=== PATIENT | female | born 2000 | race Caucasian/White ===

== ENCOUNTER 2019-09-10 05:23 | Inpatient (IN) | payer BC, MEDICAID ==
[2019-09-10] MEDS ORDERED: Misoprostol 200 MCG Tab PO PRN (06:00)
[2019-09-10] MEDS ORDERED: Water For Irrigation,Sterile 1,000 ML Container IRR PRN (06:00)
[2019-09-10] MEDS ORDERED: Sodium Chloride 0.9% 10 ML Syringe FLUSH PRN (06:00)
[2019-09-10] MEDS ORDERED: Ondansetron 4 MG/2 ML SDV IVPUSH PRN ×3 (06:00→23:00)
[2019-09-10] MEDS ORDERED: Terbutaline 1 MG/ML SDV SUBCUT PRN (06:00)
[2019-09-10] MEDS ORDERED: Butorphanol 1 MG/ML SDV IVPUSH PRN (06:00)
[2019-09-10] MEDS ORDERED: Methylergonovine 0.2 MG/1 ML Amp IM PRN ×2 (06:00→23:00)
[2019-09-10] MEDS ORDERED: Sodium Chloride 0.9% 2.5 ML Syringe FLUSH PRN (06:00)
[2019-09-10] MEDS ORDERED: Misoprostol 25 MCG (1/4 of 100 MCG) Tab VAG PRN ×2 (06:00)
[2019-09-10] MEDS ORDERED: Sodium Chloride 0.9% 10 ML SDV IV PRN (06:00)
[2019-09-10] MEDS ORDERED: Lidocaine 1% 50 ML MDV INJECT PRN (06:00)
[2019-09-10] MEDS ORDERED: Tranexamic Acid 1,000 MG in Sodium Chloride 0.9% 100 ML IV PRN ×2 (06:00→23:00)
[2019-09-10] MEDS ORDERED: Carboprost Tromethamine 250 MCG/1 ML Amp IM PRN (06:00)
[2019-09-10] MEDS ORDERED: Oxytocin/0.9 % Sodium Chloride 30 UNIT/500 ML BAG IV SCH ×2 (06:00)
[2019-09-10] MEDS ORDERED: Misoprostol 25 MCG (1/4 of 100 MCG) Tab PO ONE (06:25)
[2019-09-10] MEDS ORDERED: Misoprostol 25 MCG (1/4 of 100 MCG) Tab PO SCH (12:00)
[2019-09-10] MEDS: Nalbuphine 10 MG/1 ML Vial IVPUSH PRN ×2 (12:05→14:18)
[2019-09-10] MEDS: Lactated Ringers 1,000 ML IV SCH ×3 (12:10→20:04)
[2019-09-10] MEDS ORDERED: Bupivicaine/fentaNYL/NS 250 ML ONE (16:00)
--- NOTE | 2019-09-10 17:00 | PCM.PREANE ---
Preanesthetic Assessment - Procedure Proposed Procedure: Labor epidural - Anesthesia/Transfusion/Family Hx Anesthesia History: Prior Anesthesia Without Reaction Family History of Anesthesia Reaction: No - Review of Systems General: No Symptoms Pulmonary: No Symptoms Cardiovascular: No Symptoms Gastrointestinal: No Symptoms Neurological: No Symptoms Other: Reports: None - Physical Assessment Vital Signs: reviewed see trace master Height: 5 ft 8 in Weight: 86.636 kg ASA Class: 2 Mental Status: Alert & Oriented x3 Airway Class: Mallampati = 1 Dentition: Reports: Normal Dentition ROM/Head Extension: Full Lungs: Clear to Auscultation, Normal Respiratory Effort Cardiovascular: Regular Rate, Regular Rhythm - Lab Values: Laboratory Last Values WBC 8.87 K/uL (4.0-11.0) 09/10/19 07:10 RBC 3.83 M/uL (4.30-5.90) L 09/10/19 07:10 Hgb 10.0 g/dL (12.0-16.0) L 09/10/19 07:10 Hct 31.8 % (36.0-46.0) L 09/10/19 07:10 MCV 83.0 fL (80.0-98.0) 09/10/19 07:10 MCH 26.1 pg (27.0-32.0) L 09/10/19 07:10 MCHC 31.4 g/dL (31.0-37.0) 09/10/19 07:10 RDW Std Deviation 42.5 fl (28.0-62.0) 09/10/19 07:10 RDW Coeff of Ariadna 14 % (11.0-15.0) 09/10/19 07:10 Plt Count 218 K/uL (150-400) 09/10/19 07:10 MPV 10.10 fL (7.40-12.00) 09/10/19 07:10 Nucleated RBC % 0.0 /100WBC 09/10/19 07:10 Nucleated RBCs # 0 K/uL 09/10/19 07:10 Blood Type O POSITIVE 09/10/19 07:10 Antibody Screen NEGATIVE 09/10/19 07:10 - Allergies Allergies/Adverse Reactions: Allergies Allergy/AdvReac Type Severity Reaction Status Date / Time Penicillins Allergy Hives Verified 07/11/19 19:46 - Acknowledgements Anesthesia Type Planned: Epidural Pt an Appropriate Candidate for the Planned Anesthesia: Yes Alternatives and Risks of Anesthesia Discussed w Pt/Guardian: Yes Pt/Guardian Understands and Agrees with Anesthesia Plan: Yes PreAnesthesia Questionnaire - Past Health History Medical/Surgical History: Denies Medical/Surgical History HEENT History: Reports: None Cardiovascular History: Reports: None Respiratory History: Reports: Asthma Other Respiratory History: Exercise induced asthma Gastrointestinal History: Reports: None [employer] History: Reports: Musculoskeletal History: Reports: None Neurological History: Reports: None Psychiatric History: Reports: None Endocrine/Metabolic History: Reports: None Hematologic History: Reports: None - SUBSTANCE USE Smoking Status *Q: Current Every Day Smoker Second Hand Smoke Exposure: No Recreational Drug Use History: No - CURRENT (IN HOUSE) MEDS Current Meds: Current Medications Butorphanol Tartrate (Stadol) 1 mg IVPUSH Q1H PRN PRN Reason: Pain Carboprost Tromethamine (Hemabate Ds) 250 mcg IM ASDIRECTED PRN PRN Reason: Post Hemorrhage Lactated Ringer's (Ringers, Lactated) 1,000 mls @ 150 mls/hr IV ASDIRECTED [place] Last Admin: 09/10/19 12:10 Dose: 150 mls/hr Oxytocin/Sodium Chloride (Oxytocin 30 Unit/500 Ml-Ns) 30 unit in 500 mls @ 999 mls/hr IV TITRATE [facility] Oxytocin/Sodium Chloride (Oxytocin 30 Unit/500 Ml-Ns) 30 unit in 500 mls @ 2 mls/hr IV TITRATE [facility]; Protocol Last Admin: 09/10/19 16:23 Dose: 2 munits/min, 2 mls/hr Tranexamic Acid 1,000 mg/ (Sodium Chloride) 110 mls @ 660 mls/hr IV ONETIME PRN PRN Reason: Bleeding Lidocaine HCl (Xylocaine 1%) 50 ml INJECT ONETIME PRN PRN Reason: Laceration repair Methylergonovine Maleate (Methergine) 0.2 mg IM ASDIRECTED PRN PRN Reason: Post Hemorrhage Misoprostol (Cytotec) 200 mcg PO ONETIME PRN PRN Reason: Post Hemorrhage Misoprostol (Cytotec) 25 mcg VAG ONETIME PRN PRN Reason: Cervical Ripening Last Admin: 09/10/19 06:30 Dose: 25 mcg Misoprostol (Cytotec) 25 mcg VAG Q4H PRN PRN Reason: Cervical Ripening Last Admin: 09/10/19 11:45 Dose: 25 mcg Misoprostol (Cytotec) 25 mcg PO Q4H [place] Last Admin: 09/10/19 11:45 Dose: 25 mcg Nalbuphine HCl (Nubain) 10 mg IVPUSH Q1H PRN PRN Reason: Pain (severe 7-10) Last Admin: 09/10/19 14:18 Dose: 10 mg Ondansetron HCl (Zofran) 4 mg IVPUSH Q4H PRN PRN Reason: Nausea/Vomiting Sodium Chloride (Saline Flush) 10 ml FLUSH ASDIRECTED PRN PRN Reason: Keep Vein Open Sodium Chloride (Saline Flush) 2.5 ml FLUSH ASDIRECTED PRN PRN Reason: Keep Vein Open Sodium Chloride (Normal Saline) 10 ml IV ASDIRECTED PRN PRN Reason: IV Use Sterile Water (Sterile Water For Irrigation) 1,000 ml IRR ASDIRECTED PRN PRN Reason: delivery Terbutaline Sulfate (Brethine) 0.25 mg SUBCUT ASDIRECTED PRN PRN Reason: Tacysystole Discontinued Medications Fentanyl/Bupivacaine HCl (Fentanyl/Bupivacaine/Ns 2 Mcg-0.125% 250 Ml) Confirm Administered Dose 250 mls @ as directed .ROUTE .STK-MED ONE Stop: 09/10/19 16:01 Misoprostol (Cytotec) 25 mcg PO ONETIME ONE Stop: 09/10/19 06:26 Last Admin: 09/10/19 06:30 Dose: 25 mcg
[2019-09-10] MEDS ORDERED: Bupivacaine 0.5% 30 ML SDV ONE (21:58)
[2019-09-10] MEDS ORDERED: ceFAZolin 1 GM Vial ONE (22:09)
[2019-09-10] MEDS ORDERED: Sodium Chloride 0.9% 20 ML ONE (22:09)
[2019-09-10] MEDS ORDERED: Oxytocin 10 Units/1 ML SDV ONE ×2 (22:17→23:15)
[2019-09-10] MEDS ORDERED: Propofol 200 MG/20 ML SDV ONE (22:17)
[2019-09-10] MEDS ORDERED: Morphine PF 10 MG/10 ML SDV ONE (22:24)
[2019-09-10] MEDS ORDERED: fentaNYL 250 MCG/5 ML SDV ONE (22:24)
[2019-09-10] MEDS ORDERED: Phenylephrine/Normal Saline 100 MCG/ML 10 ML Syringe ONE (22:29)
[2019-09-10] MEDS ORDERED: Nalbuphine 10 MG/1 ML Vial IVPUSH PRN (22:39)
[2019-09-10] MEDS ORDERED: fentaNYL 100 MCG/2 ML SDV IVPUSH PRN (22:39)
[2019-09-10] MEDS ORDERED: Naloxone 0.4 MG/ML Syringe IVPUSH PRN (22:39)
[2019-09-10] MEDS ORDERED: diphenhydrAMINE 50 MG/ML SDV IVPUSH PRN ×2 (22:39→23:00)
[2019-09-10] MEDS ORDERED: Acetaminophen/oxyCODONE 325-5 MG Tab PO PRN ×2 (22:39→23:00)
[2019-09-10] MEDS ORDERED: Lidocaine 2% 5 ML SDV ONE (22:47)
[2019-09-10] MEDS ORDERED: Rocuronium 100 MG/10 ML Syringe ONE (22:48)
[2019-09-10] MEDS ORDERED: Octyl 2-Cyanoacrylate 1 Tube ONE (22:49)
[2019-09-10] MEDS ORDERED: Misoprostol 200 MCG Tab RECTAL PRN (23:00)
[2019-09-10] MEDS ORDERED: Lanolin 100% Cream 7 GM Tube TOP PRN (23:00)
[2019-09-10] MEDS ORDERED: Lactated Ringers 1,000 ML IV SCH (23:00)
[2019-09-10] MEDS ORDERED: Bisacodyl 10 MG Supp RECTAL PRN (23:00)
[2019-09-10] MEDS ORDERED: Oxytocin 10 Units/1 ML SDV IM PRN (23:00)
--- NOTE | 2019-09-10 23:12 | PCM.OPNOTE ---
- General Post-Op/Procedure Note Date of Surgery/Procedure: 09/10/19 Operative Procedure(s): Primary LTCS Findings: Viable male APGARs 9, 9 weight 4410 gm. Intact placenta with 3 V cord, normal appearing pelvis Pre Op Diagnosis: 40/1 week IUP. intolerance to labor Post-Op Diagnosis: Same Anesthesia Technique: Epidural, General ET Tube Primary Surgeon: Whitney Landis Fluid Replacement, Intraop: 1,000 (in OR) EBL in mLs: 600 Complications: none known Condition: Stable Free Text/Narrative:: Dictation [id number]
[2019-09-10] MEDS: Ketorolac 30 MG/ML SDV IVPUSH SCH (23:45)
--- NOTE | 2019-09-11 00:04 | PCM.POSTAN ---
POST ANESTHESIA ASSESSMENT - MENTAL STATUS Mental Status: Alert, Oriented - VITAL SIGNS Vital Signs: Last Vital Signs Temp 98.1 F 09/10/19 23:06 Pulse 125 H 09/10/19 23:51 Resp 15 09/10/19 23:51 BP 129/72 09/10/19 23:51 Pulse Ox 97 09/10/19 23:51 - RESPIRATORY Respiratory Status: Respiratory Rate WNL, Airway Patent, O2 Saturation Stable - CARDIOVASCULAR CV Status: Pulse Rate WNL, Blood Pressure Stable Free Text/Narrative:: tachy 100s to 120s, baseline in the 90's with epidural placement earlier in the evening - GASTROINTESTINAL GI Status: No Symptoms - PAIN Pain Score: 4 - POST OP HYDRATION Hydration Status: Adequate & Stable - OBSERVATIONS Free Text/Narrative:: Pt. sitting up and trying to nurse baby
--- NOTE | 2019-09-11 04:50 | OR ---
SURGEON: Whitney Landis M.D. DATE OF PROCEDURE: 09/10/2019 PREOPERATIVE DIAGNOSES: 1. Forty and one-week intrauterine . 2. intolerance to labor. POSTOPERATIVE DIAGNOSES: 1. Forty and one-week intrauterine . 2. intolerance to labor. PROCEDURE: Primary low-transverse section. PRIMARY SURGEON: Whitney Landis M.D. ANESTHESIA: Epidural converted to general endotracheal anesthesia. FLUIDS: 1000 mL of crystalloid in the OR. ESTIMATED BLOOD LOSS: 600 mL. COMPLICATIONS: None. FINDINGS: Viable male, score 9 at 1 minute, 9 at 5 minutes. Weight of 4410 g. Intact placenta, 3-vessel cord. Normal-appearing pelvis. DISPOSITION: Infant to nursery, mom in PACU, stable. PROCEDURE DETAIL: Yola is a 19-year-old G1, P0, at 40 and 1 weeks' gestational age, who usually follows with [facility], who is scheduled for an elective induction this morning. She presented and cervix was initially unfavorable, 2 cm, 50% effaced, -3 station, therefore was initiated with Cytotec ripening. heart tones were category 1. The patient responded nicely to the Cytotec and once on 2nd dosing was able to proceed with Pitocin and she had progressed to approximately 4 cm dilatation. The patient continued to progress throughout the afternoon hours, became increasingly uncomfortable, underwent regional anesthesia in the form of epidural. Became more comfortable and shortly after 6 p.m. was found to be approximately 5 cm dilated, 80% effaced, -3 station, underwent amniotomy, clear fluid was returned. Continued to progress over the next few hours to approximately 8 to 9 cm. However, during this time interval she began having variable deceleration to the 70s despite efforts at repositioning, oxygen, was given IV fluid bolus, and ultimately stopping the Pitocin. She was still ashleigh every 2 minutes and continued to have rather deep variable decelerations. She also at this juncture was making minimal change in her cervix. We monitored this category 2 tracing for approximately 2 hours. I tried various positions without continued progression. At this time interval, have discussed with the patient that it would be best to proceed with delivery as the category 2 heart tones are persisting and we are still remote from delivery. Risks of procedure were discussed with her including infection; bleeding; possible trauma to the surrounding bowel, bladder, ureters; in case of excessive blood loss, need for blood product transfusion; in rare lifesaving circumstances need for hysterectomy; risk of anesthesia, risk for thromboembolic event. She voiced understanding and agrees to proceed. The patient was taken to the operating room after her epidural had been rebolused by Anesthesia. She was placed in the dorsal supine position with leftward tilt. SCDs to lower extremities. Rangel to gravity. She was prepped and draped in usual sterile fashion. A time-out was performed. She did receive Ancef prophylactically. After being prepped and draped in usual sterile fashion, anesthesia was tested and patient was still having some discomfort. The heart tones had recovered to the 140s to 150s, so I did dose the patient with 2.25 mg of terbutaline. Once the contractions subsided, the heart tones remained stable. Therefore, we allowed another 5 minutes of time for anesthesia to set up. At this time the patient did pass the initial examination to assess for adequate analgesia. However, once the Pfannenstiel skin incision was created, shortly thereafter patient began having quite a lot of discomfort. Therefore, we opted to proceed with general anesthesia. The patient underwent general endotracheal anesthesia and continued with the delivery. The subcutaneous tissue was incised down to the level of the fascia, which was incised in the midline, lateralized to either side sharply. The superior aspect of the fascia was tented upward, dissected sharply and bluntly from underlying muscle. Similar aspect was performed with the inferior aspect of fascia. Rectus muscle and peritoneum were entered. Rectus muscles and peritoneum were now lateralized bluntly. Uterine position and position palpated. Self- retaining retractor was gently placed. Bladder flap was created sharply and bluntly. Bladder was bluntly mobilized away from the lower uterine segment. Low-transverse hysterotomy was now performed. Uterine cavity was entered bluntly. Hysterotomy was lateralized bluntly. The 's head was flexed and delivered from the pelvis. Fundal pressure was applied. The infant's head was delivered followed by anterior shoulder, posterior shoulder, and remaining body delivered. Nuchal cord x2 noted. The infant's oropharynx and nares bulb suctioned. The cord was clamped x2 and cut. was handed off to attending nursery staff and tar roofer. Cord arterial, cord venous, cord blood samples obtained. The placenta was now delivered. Uterine cavity was cleared of all clot and debris. Hysterotomy was repaired using 0 Vicryl in continuous running locked fashion, followed by re- imbricating layer. The posterior aspect of the uterus inspected. No defects or hematomas found be forming. Region was well irrigated, suction dried. Tubes and ovaries appeared normal. The uterus was returned to abdominal cavity. Colonic gutters were cleared of all clots and debris, well irrigated, and suction dried. Uterus still remained somewhat boggy at this juncture, therefore dosed patient with Hemabate. Uterus became more firm thereafter. Hemostasis was evident along the incision. Self-retaining retractor now gently removed. Bladder blade was placed. Incision was again inspected and found to be hemostatic. Any areas of serosal oozing were now cauterized. Bladder blade was now removed. The rectus muscle and peritoneum were now reapproximated using 0 Vicryl in inverted mattress suture technique. Anterior aspect of the muscle, posterior aspect of the fascia closely inspected. Any areas of oozing were cauterized. The rectus fascia was reapproximated using 0 Vicryl in continuous running fashion beginning laterally on each side and meeting in the midline. Subcutaneous tissue was well irrigated and suction dried. Any areas of oozing were cauterized. The skin edges were reapproximated using 3-0 Vicryl on a Esteban needle in subcuticular fashion, followed by Dermabond. Uterus was more firm at this juncture. Sponge, instrument, and needle count was correct x2. The patient tolerated the procedure well overall. She will go to PACU in stable condition. HETAL / SHARYN /[id number]
[2019-09-11] MEDS: Ketorolac 30 MG/ML SDV IVPUSH SCH ×3 (05:46→18:01)
--- NOTE | 2019-09-11 08:26 | PCM48HPAN ---
Post Anesthesia Note - EVALUATION WITHIN 48HRS OF ANESTHETIC Vital Signs in Normal Range: Yes Patient Participated in Evaluation: Yes Respiratory Function Stable: Yes Airway Patent: Yes Cardiovascular Function Stable: Yes Hydration Status Stable: Yes Pain Control Satisfactory: Yes Nausea and Vomiting Control Satisfactory: Yes Mental Status Recovered: Yes Vital Signs: Last Vital Signs Temp 37.0 C 09/11/19 08:06 Pulse 108 H 09/11/19 08:06 Resp 18 09/11/19 08:06 BP 131/72 09/11/19 08:06 Pulse Ox 95 09/11/19 08:06
[2019-09-11] MEDS: Docusate Sodium 100 MG Cap PO SCH ×2 (09:24→23:38)
--- NOTE | 2019-09-11 11:09 | PCM.PNPP ---
- General Info Date of Service: 09/11/19 Functional Status: Reports: Pain Controlled, Tolerating Diet - Review of Systems General: Reports: Fatigue. Denies: Fever, Weakness Pulmonary: Denies: Shortness of Breath Cardiovascular: Denies: Chest Pain, Palpitations, Lightheadedness Gastrointestinal: Denies: Abdominal Pain, Nausea, Vomiting Musculoskeletal: Reports: No Symptoms Skin: Reports: No Symptoms Neurological: Reports: No Symptoms Psychiatric: Reports: No Symptoms - General Info Date of Service: 09/11/19 - Patient Data Vital Signs - Most Recent: Last Vital Signs Temp 37.0 C 09/11/19 08:06 Pulse 82 09/11/19 08:45 Resp 18 09/11/19 08:06 BP 131/72 09/11/19 08:06 Pulse Ox 97 09/11/19 08:45 Weight - Most Recent: 86.636 kg I&O - Last 24 Hours: Intake & Output 09/10/19 09/11/19 09/11/19 22:59 06:59 14:59 Intake Total 2550 Output Total 150 1550 Balance -150 1000 Lab Results - Last 24 Hours: Laboratory Results - last 24 hr 09/10/19 09/11/19 Range/Units 22:25 06:35 Hgb 7.9 L (12.0-16.0) g/dL Hct 25.0 L (36.0-46.0) % Cord ABG pH 7.192 (7.18-7.38) Cord ABG Base Excess -6 (-10--2) Cord VBG pH 7.282 (7.25-7.45) Cord VBG Base Excess -6 (-10--2) Med Orders - Current: Current Medications Bisacodyl (Dulcolax) 10 mg RECTAL ONETIME PRN PRN Reason: Constipation Butorphanol Tartrate (Stadol) 1 mg IVPUSH Q1H PRN PRN Reason: Pain Carboprost Tromethamine (Hemabate Ds) 250 mcg IM ASDIRECTED PRN PRN Reason: Post Hemorrhage Diphenhydramine HCl (Benadryl) 25 mg IVPUSH Q4H PRN PRN Reason: Itching Stop: 09/11/19 22:39 Diphenhydramine HCl (Benadryl) 25 mg IVPUSH Q6H PRN PRN Reason: Itching or Nausea Docusate Sodium (Colace) 100 mg PO BID [facility] Last Admin: 09/11/19 09:24 Dose: 100 mg Emollient Ointment (Lansinoh Hpa) 0 gm TOP ASDIRECTED PRN PRN Reason: Sore Nipples Fentanyl (Sublimaze) 50 mcg IVPUSH Q1H PRN PRN Reason: Pain (severe 7-10) Last Admin: 09/10/19 23:32 Dose: 50 mcg Lactated Ringer's (Ringers, Lactated) 1,000 mls @ 150 mls/hr IV ASDIRECTED [facility] Last Admin: 09/10/19 20:04 Dose: 999 mls/hr Oxytocin/Sodium Chloride (Oxytocin 30 Unit/500 Ml-Ns) 30 unit in 500 mls @ 999 mls/hr IV TITRATE [facility] Oxytocin/Sodium Chloride (Oxytocin 30 Unit/500 Ml-Ns) 30 unit in 500 mls @ 2 mls/hr IV TITRATE [facility]; Protocol Last Titration: 09/10/19 18:16 Dose: 3 munits/min, 3 mls/hr Tranexamic Acid 1,000 mg/ (Sodium Chloride) 110 mls @ 660 mls/hr IV ONETIME PRN PRN Reason: Bleeding Lactated Ringer's (Ringers, Lactated) 1,000 mls @ 125 mls/hr IV ASDIRECTED [facility] Tranexamic Acid 1,000 mg/ (Sodium Chloride) 110 mls @ 660 mls/hr IV ONETIME PRN PRN Reason: Bleeding Ibuprofen (Motrin) 800 mg PO Q8H PRN PRN Reason: mild pain or fever Ketorolac Tromethamine (Toradol) 30 mg IVPUSH Q6H [facility] Stop: 09/11/19 23:01 Last Admin: 09/11/19 05:46 Dose: 30 mg Lidocaine HCl (Xylocaine 1%) 50 ml INJECT ONETIME PRN PRN Reason: Laceration repair Methylergonovine Maleate (Methergine) 0.2 mg IM ASDIRECTED PRN PRN Reason: Post Hemorrhage Methylergonovine Maleate (Methergine) 0.2 mg IM ONETIME PRN PRN Reason: Excessive Vaginal Bleeding Misoprostol (Cytotec) 200 mcg PO ONETIME PRN PRN Reason: Post Hemorrhage Misoprostol (Cytotec) 25 mcg VAG ONETIME PRN PRN Reason: Cervical Ripening Last Admin: 09/10/19 06:30 Dose: 25 mcg Misoprostol (Cytotec) 25 mcg VAG Q4H PRN PRN Reason: Cervical Ripening Last Admin: 09/10/19 11:45 Dose: 25 mcg Misoprostol (Cytotec) 25 mcg PO Q4H [place] Last Admin: 09/10/19 11:45 Dose: 25 mcg Misoprostol (Cytotec) 1,000 mcg RECTAL ONETIME PRN PRN Reason: excessive bleeding Nalbuphine HCl (Nubain) 10 mg IVPUSH Q1H PRN PRN Reason: Pain (severe 7-10) Last Admin: 09/10/19 14:18 Dose: 10 mg Nalbuphine HCl (Nubain) 5 mg IVPUSH ASDIRECTED PRN PRN Reason: Itching Naloxone HCl (Narcan) 0.1 mg IVPUSH ONETIME PRN PRN Reason: Respiratory Depression Stop: 09/11/19 22:39 Ondansetron HCl (Zofran) 4 mg IVPUSH Q4H PRN PRN Reason: Nausea/Vomiting Ondansetron HCl (Zofran) 4 mg IVPUSH Q6H PRN PRN Reason: Nausea Ondansetron HCl (Zofran) 4 mg IVPUSH Q4H PRN PRN Reason: Nausea/Vomiting Oxycodone/Acetaminophen (Percocet 325-5 Mg) 2 tab PO Q6H PRN PRN Reason: Pain (moderate 4-6) Oxycodone/Acetaminophen (Percocet 325-5 Mg) 1 tab PO Q4H PRN PRN Reason: Pain (moderate 4-6) Oxycodone/Acetaminophen (Percocet 325-5 Mg) 2 tab PO Q4H PRN PRN Reason: Pain (moderate 4-6) Oxytocin (Pitocin) 10 unit IM ASDIRECTED PRN PRN Reason: Excessive Vaginal Bleeding Simethicone (Simethicone) 160 mg PO QID [facility] Sodium Chloride (Saline Flush) 10 ml FLUSH ASDIRECTED PRN PRN Reason: Keep Vein Open Sodium Chloride (Saline Flush) 2.5 ml FLUSH ASDIRECTED PRN PRN Reason: Keep Vein Open Sodium Chloride (Normal Saline) 10 ml IV ASDIRECTED PRN PRN Reason: IV Use Sterile Water (Sterile Water For Irrigation) 1,000 ml IRR ASDIRECTED PRN PRN Reason: delivery Terbutaline Sulfate (Brethine) 0.25 mg SUBCUT ASDIRECTED PRN PRN Reason: Tacysystole Last Admin: 09/10/19 21:40 Dose: 0.25 mg Discontinued Medications Bupivacaine HCl (Marcaine 0.5%) Confirm Administered Dose 30 ml .ROUTE .STK-MED ONE Stop: 09/10/19 21:59 Cefazolin Sodium (Ancef) Confirm Administered Dose 2 gm .ROUTE .STK-MED ONE Stop: 09/10/19 22:10 Fentanyl (Sublimaze) Confirm Administered Dose 250 mcg .ROUTE .STK-MED ONE Stop: 09/10/19 22:25 Fentanyl/Bupivacaine HCl (Fentanyl/Bupivacaine/Ns 2 Mcg-0.125% 250 Ml) Confirm Administered Dose 250 mls @ as directed .ROUTE .STK-MED ONE Stop: 09/10/19 16:01 Sodium Chloride (Normal Saline) Confirm Administered Dose 20 mls @ as directed .ROUTE .STK-MED ONE Stop: 09/10/19 22:10 Lidocaine (Xylocaine-Mpf 2%) Confirm Administered Dose 5 ml .ROUTE .STK-MED ONE Stop: 09/10/19 22:48 Misoprostol (Cytotec) 25 mcg PO ONETIME ONE Stop: 09/10/19 06:26 Last Admin: 09/10/19 06:30 Dose: 25 mcg Morphine Sulfate (Duramorph Pf) Confirm Administered Dose 10 mg .ROUTE .STK-MED ONE Stop: 09/10/19 22:25 Octyl Cyanoacrylate (Dermabond Advance) Confirm Administered Dose 1 applic .ROUTE .STK-MED ONE Stop: 09/10/19 22:50 Oxytocin (Pitocin) Confirm Administered Dose 20 unit .ROUTE .STK-MED ONE Stop: 09/10/19 22:18 Oxytocin (Pitocin) Confirm Administered Dose 20 unit .ROUTE .STK-MED ONE Stop: 09/10/19 23:16 Phenylephrine HCl (Phenylephrine In Ns 100 Mcg/Ml) Confirm Administered Dose 1 mg .ROUTE .STK-MED ONE Stop: 09/10/19 22:30 Propofol (Diprivan 20 Ml) Confirm Administered Dose 200 mg .ROUTE .STK-MED ONE Stop: 09/10/19 22:18 Rocuronium Traphill (Zemuron) Confirm Administered Dose 100 mg .ROUTE .STK-MED ONE Stop: 09/10/19 22:49 Succinylcholine Chloride (Succinylcholine Chloride) Confirm Administered Dose 200 mg .ROUTE .STK-MED ONE Stop: 09/10/19 22:49 - Interaction Support Person: Significant Other - Recovery Exam Fundal Tone: Firm Fundal Level: 1 Fingerbreadths Below Umbilicus Fundal Placement: Midline Lochia Amount: Small Lochia Color: Rubra/Red Perineum Description: Intact, Minimal Bruising/Swelling Episiotomy/Laceration: None Bladder Status: Nonpalpable, Indwelling Catheter in Place Urinary Elimination: Indwelling Catheter - Exam General: Alert, Oriented Lungs: Normal Respiratory Effort Cardiovascular: Regular Rate, Regular Rhythm GI/Abdominal Exam: Normal Bowel Sounds, Soft, Tender (appropriately near incision). No: Guarding, Rigid Extremities: Pedal Edema (trace). No: Maeve's Sign Skin: Warm, Dry, Intact Wound/Incisions: Dressing Dry and Intact Neurological: No New Focal Deficit Psy/Mental Status: Alert, Normal Affect, Normal Mood - Problem List & Annotations (1) Delivery by section SNOMED Code(s): 835459539 Code(s): [id number] - Status: Acute Current Visit: Yes - Problem List Review Problem List Initiated/Reviewed/Updated: Yes - My Orders Last 24 Hours: My Active Orders 09/10/19 12:00 miSOPROStoL [Cytotec] 25 mcg PO Q4H 09/10/19 23:00 Patient Status [ADT] Routine Ambulate [RC] PER UNIT ROUTINE Communication Order [RC] PER UNIT ROUTINE Communication Order [RC] PER UNIT ROUTINE Communication Order [RC] Per Unit Routine May Shower [RC] ASDIRECTED Notify Provider Intake and Out [RC] ASDIRECTED Notify Provider Vital Signs [RC] ASDIRECTED RT Incentive Spirometry [RC] Q2HWA Vital Signs [RC] PER UNIT ROUTINE Acetaminophen/oxyCODONE [Percocet 325-5 MG] 1 tab PO Q4H PRN Acetaminophen/oxyCODONE [Percocet 325-5 MG] 2 tab PO Q4H PRN Ketorolac [Toradol] 30 mg IVPUSH Q6H Lactated Ringers [Ringers, Lactated] 1,000 ml IV ASDIRECTED Lanolin [Lansinoh HPA] See Dose Instructions TOP ASDIRECTED PRN Methylergonovine [Methergine] 0.2 mg IM ONETIME PRN Ondansetron [Zofran] 4 mg IVPUSH Q4H PRN Oxytocin [Pitocin] 10 unit IM ASDIRECTED PRN Tranexamic Acid [Cyklokapron] 1,000 mg Sodium Chloride 0.9% [Normal Saline] 100 ml IV ONETIME bisacodyL [Dulcolax] 10 mg RECTAL ONETIME PRN diphenhydrAMINE [Benadryl] 25 mg IVPUSH Q6H PRN miSOPROStoL [Cytotec] 1,000 mcg RECTAL ONETIME PRN Abdominal Binder [OM.PC] Routine Assess Lochia [WOMSER] Per Unit Routine Assess Uterine Involution [WOMSER] Per Unit Routine Breast Pump [WOMSER] Per Unit Routine Heat Therapy [OM.PC] Routine Ice Therapy [OM.PC] Routine Peripheral IV Discontinue [OM.PC] Routine Sequential Compression Device [OM.PC] Per Unit Routine 09/10/19 23:01 Antiembolic Devices [RC] PER UNIT ROUTINE 09/11/19 00:00 Simethicone 160 mg PO QID 09/11/19 09:00 Docusate Sodium [Colace] 100 mg PO BID 09/11/19 Breakfast Regular Diet [DIET] 09/12/19 05:00 Ibuprofen [Motrin] 800 mg PO Q8H PRN - Assessment Assessment:: POD 1 status post Primary LTCS for intolerance to labor Anemia - Plan Plan:: Continue postoperative cares--patient anemic upon admission and exacerbated with delivery> will monitor for orthostatic symptoms. None so far and VS are stable. Ambulate today
[2019-09-11] MEDS: Simethicone 80 MG Tab.Chew PO SCH ×3 (12:26→23:38)
[2019-09-12] MEDS ORDERED: Ibuprofen 800 MG Tab PO PRN (05:00)
[2019-09-12] MEDS: Acetaminophen/oxyCODONE 325-5 MG Tab PO PRN ×2 (08:57→17:25)
[2019-09-12] MEDS: Docusate Sodium 100 MG Cap PO SCH ×2 (08:57→21:18)
[2019-09-12] MEDS: Simethicone 80 MG Tab.Chew PO SCH ×2 (08:57→18:15)
[2019-09-12] MEDS: Ibuprofen 800 MG Tab PO PRN ×2 (08:58→17:23)
[2019-09-12] MEDS: Ketorolac 30 MG/ML SDV IVPUSH SCH (10:07)
--- NOTE | 2019-09-12 11:34 | PCM.PNPP ---
- General Info Date of Service: 09/12/19 Functional Status: Reports: Pain Controlled, Tolerating Diet, Ambulating, Urinating - Review of Systems General: Denies: Fever, Weakness, Fatigue Pulmonary: Denies: Shortness of Breath Cardiovascular: Denies: Chest Pain, Palpitations, Lightheadedness Gastrointestinal: Denies: Abdominal Pain, Nausea, Vomiting Genitourinary: Denies: Flank Pain Musculoskeletal: Reports: No Symptoms Skin: Reports: No Symptoms Neurological: Reports: No Symptoms Psychiatric: Reports: No Symptoms - General Info Date of Service: 09/12/19 - Patient Data Vital Signs - Most Recent: Last Vital Signs Temp 37.2 C 09/12/19 08:30 Pulse 101 H 09/12/19 08:30 Resp 16 09/12/19 08:30 BP 127/60 09/12/19 08:30 Pulse Ox 97 09/12/19 08:30 Weight - Most Recent: 86.636 kg I&O - Last 24 Hours: Intake & Output 09/11/19 09/12/19 09/12/19 22:59 06:59 14:59 Output Total 1375 Balance -1375 Med Orders - Current: Current Medications Bisacodyl (Dulcolax) 10 mg RECTAL ONETIME PRN PRN Reason: Constipation Butorphanol Tartrate (Stadol) 1 mg IVPUSH Q1H PRN PRN Reason: Pain Carboprost Tromethamine (Hemabate Ds) 250 mcg IM ASDIRECTED PRN PRN Reason: Post Hemorrhage Diphenhydramine HCl (Benadryl) 25 mg IVPUSH Q6H PRN PRN Reason: Itching or Nausea Docusate Sodium (Colace) 100 mg PO BID [facility] Last Admin: 09/12/19 08:57 Dose: 100 mg Emollient Ointment (Lansinoh Hpa) 0 gm TOP ASDIRECTED PRN PRN Reason: Sore Nipples Last Admin: 09/11/19 23:37 Dose: 1 bottle Fentanyl (Sublimaze) 50 mcg IVPUSH Q1H PRN PRN Reason: Pain (severe 7-10) Last Admin: 09/10/19 23:32 Dose: 50 mcg Lactated Ringer's (Ringers, Lactated) 1,000 mls @ 150 mls/hr IV ASDIRECTED [facility] Last Admin: 09/10/19 20:04 Dose: 999 mls/hr Oxytocin/Sodium Chloride (Oxytocin 30 Unit/500 Ml-Ns) 30 unit in 500 mls @ 999 mls/hr IV TITRATE [facility] Oxytocin/Sodium Chloride (Oxytocin 30 Unit/500 Ml-Ns) 30 unit in 500 mls @ 2 mls/hr IV TITRATE [place]; Protocol Last Titration: 09/10/19 18:16 Dose: 3 munits/min, 3 mls/hr Tranexamic Acid 1,000 mg/ (Sodium Chloride) 110 mls @ 660 mls/hr IV ONETIME PRN PRN Reason: Bleeding Lactated Ringer's (Ringers, Lactated) 1,000 mls @ 125 mls/hr IV ASDIRECTED [facility] Tranexamic Acid 1,000 mg/ (Sodium Chloride) 110 mls @ 660 mls/hr IV ONETIME PRN PRN Reason: Bleeding Ibuprofen (Motrin) 800 mg PO Q8H PRN PRN Reason: mild pain or fever Last Admin: 09/12/19 08:58 Dose: 800 mg Lidocaine HCl (Xylocaine 1%) 50 ml INJECT ONETIME PRN PRN Reason: Laceration repair Methylergonovine Maleate (Methergine) 0.2 mg IM ASDIRECTED PRN PRN Reason: Post Hemorrhage Methylergonovine Maleate (Methergine) 0.2 mg IM ONETIME PRN PRN Reason: Excessive Vaginal Bleeding Misoprostol (Cytotec) 200 mcg PO ONETIME PRN PRN Reason: Post Hemorrhage Misoprostol (Cytotec) 25 mcg VAG ONETIME PRN PRN Reason: Cervical Ripening Last Admin: 09/10/19 06:30 Dose: 25 mcg Misoprostol (Cytotec) 25 mcg VAG Q4H PRN PRN Reason: Cervical Ripening Last Admin: 09/10/19 11:45 Dose: 25 mcg Misoprostol (Cytotec) 25 mcg PO Q4H [facility] Last Admin: 09/10/19 11:45 Dose: 25 mcg Misoprostol (Cytotec) 1,000 mcg RECTAL ONETIME PRN PRN Reason: excessive bleeding Nalbuphine HCl (Nubain) 10 mg IVPUSH Q1H PRN PRN Reason: Pain (severe 7-10) Last Admin: 09/10/19 14:18 Dose: 10 mg Nalbuphine HCl (Nubain) 5 mg IVPUSH ASDIRECTED PRN PRN Reason: Itching Ondansetron HCl (Zofran) 4 mg IVPUSH Q4H PRN PRN Reason: Nausea/Vomiting Ondansetron HCl (Zofran) 4 mg IVPUSH Q6H PRN PRN Reason: Nausea Ondansetron HCl (Zofran) 4 mg IVPUSH Q4H PRN PRN Reason: Nausea/Vomiting Oxycodone/Acetaminophen (Percocet 325-5 Mg) 2 tab PO Q6H PRN PRN Reason: Pain (moderate 4-6) Oxycodone/Acetaminophen (Percocet 325-5 Mg) 1 tab PO Q4H PRN PRN Reason: Pain (moderate 4-6) Last Admin: 09/12/19 08:57 Dose: 1 tab Oxycodone/Acetaminophen (Percocet 325-5 Mg) 2 tab PO Q4H PRN PRN Reason: Pain (moderate 4-6) Last Admin: 09/12/19 00:03 Dose: 2 tab Oxytocin (Pitocin) 10 unit IM ASDIRECTED PRN PRN Reason: Excessive Vaginal Bleeding Simethicone (Simethicone) 160 mg PO QID [facility] Last Admin: 09/12/19 08:57 Dose: 160 mg Sodium Chloride (Saline Flush) 10 ml FLUSH ASDIRECTED PRN PRN Reason: Keep Vein Open Sodium Chloride (Saline Flush) 2.5 ml FLUSH ASDIRECTED PRN PRN Reason: Keep Vein Open Sodium Chloride (Normal Saline) 10 ml IV ASDIRECTED PRN PRN Reason: IV Use Sterile Water (Sterile Water For Irrigation) 1,000 ml IRR ASDIRECTED PRN PRN Reason: delivery Terbutaline Sulfate (Brethine) 0.25 mg SUBCUT ASDIRECTED PRN PRN Reason: Tacysystole Last Admin: 09/10/19 21:40 Dose: 0.25 mg Discontinued Medications Bupivacaine HCl (Marcaine 0.5%) Confirm Administered Dose 30 ml .ROUTE .STK-MED ONE Stop: 09/10/19 21:59 Cefazolin Sodium (Ancef) Confirm Administered Dose 2 gm .ROUTE .STK-MED ONE Stop: 09/10/19 22:10 Diphenhydramine HCl (Benadryl) 25 mg IVPUSH Q4H PRN PRN Reason: Itching Stop: 09/11/19 22:39 Fentanyl (Sublimaze) Confirm Administered Dose 250 mcg .ROUTE .STK-MED ONE Stop: 09/10/19 22:25 Fentanyl/Bupivacaine HCl (Fentanyl/Bupivacaine/Ns 2 Mcg-0.125% 250 Ml) Confirm Administered Dose 250 mls @ as directed .ROUTE .STK-MED ONE Stop: 09/10/19 16:01 Sodium Chloride (Normal Saline) Confirm Administered Dose 20 mls @ as directed .ROUTE .STK-MED ONE Stop: 09/10/19 22:10 Ibuprofen (Motrin) 800 mg PO Q8H PRN PRN Reason: mild pain or fever Stop: 09/12/19 00:01 Ketorolac Tromethamine (Toradol) 30 mg IVPUSH Q6H [facility] Stop: 09/11/19 23:01 Last Admin: 09/12/19 10:07 Dose: Not Given Lidocaine (Xylocaine-Mpf 2%) Confirm Administered Dose 5 ml .ROUTE .STK-MED ONE Stop: 09/10/19 22:48 Misoprostol (Cytotec) 25 mcg PO ONETIME ONE Stop: 09/10/19 06:26 Last Admin: 09/10/19 06:30 Dose: 25 mcg Morphine Sulfate (Duramorph Pf) Confirm Administered Dose 10 mg .ROUTE .STK-MED ONE Stop: 09/10/19 22:25 Naloxone HCl (Narcan) 0.1 mg IVPUSH ONETIME PRN PRN Reason: Respiratory Depression Stop: 09/11/19 22:39 Octyl Cyanoacrylate (Dermabond Advance) Confirm Administered Dose 1 applic .ROUTE .STK-MED ONE Stop: 09/10/19 22:50 Oxytocin (Pitocin) Confirm Administered Dose 20 unit .ROUTE .STK-MED ONE Stop: 09/10/19 22:18 Oxytocin (Pitocin) Confirm Administered Dose 20 unit .ROUTE .STK-MED ONE Stop: 09/10/19 23:16 Phenylephrine HCl (Phenylephrine In Ns 100 Mcg/Ml) Confirm Administered Dose 1 mg .ROUTE .STK-MED ONE Stop: 09/10/19 22:30 Propofol (Diprivan 20 Ml) Confirm Administered Dose 200 mg .ROUTE .STK-MED ONE Stop: 12/27/19 22:18 Rocuronium [place] (Zemuron) Confirm Administered Dose 100 mg .ROUTE .STK-MED ONE Stop: 09/10/19 22:49 Succinylcholine Chloride (Succinylcholine Chloride) Confirm Administered Dose 200 mg .ROUTE .STK-MED ONE Stop: 09/10/19 22:49 - Interaction Support Person: Significant Other - Recovery Exam Fundal Tone: Firm Fundal Level: 1 Fingerbreadths Below Umbilicus Fundal Placement: Midline Lochia Amount: Small Lochia Color: Rubra/Red Perineum Description: Intact, Minimal Bruising/Swelling Episiotomy/Laceration: None Bladder Status: Nonpalpable, Voiding Urinary Elimination: Voided - Exam General: Alert, Oriented Lungs: Normal Respiratory Effort Cardiovascular: Regular Rate, Regular Rhythm GI/Abdominal Exam: Normal Bowel Sounds, Soft. No: Guarding, Rigid Extremities: Pedal Edema (trace). No: Maeve's Sign Skin: Warm, Dry, Intact Wound/Incisions: Healing Well, No Drainage. No: Erythema Neurological: No New Focal Deficit Psy/Mental Status: Alert, Normal Affect, Normal Mood - Problem List & Annotations (1) Delivery by section SNOMED Code(s): 383555509 Code(s): UOR6881 - Status: Acute Current Visit: Yes - Problem List Review Problem List Initiated/Reviewed/Updated: Yes - My Orders Last 24 Hours: My Active Orders 09/12/19 00:01 Ibuprofen [Motrin] 800 mg PO Q8H PRN - Assessment Assessment:: POD 2 status post Primary LTCS for intolerance to labor Anemia - Plan Plan:: Patient is doing well overall, ambulating halls. Voiding. Pain is well controlled. Asymptomatic from anemia. Baby is under bili lights today, so will continue postoperative cares for Aeris.
[2019-09-13] MEDS: Simethicone 80 MG Tab.Chew PO SCH ×2 (00:57→09:02)
[2019-09-13] MEDS: Ibuprofen 800 MG Tab PO PRN ×2 (00:57→13:13)
--- NOTE | 2019-09-13 08:30 | PCM.PNPP ---
- General Info Date of Service: 09/13/19 Functional Status: Reports: Pain Controlled, Tolerating Diet, Ambulating, Urinating - Review of Systems General: Reports: No Symptoms HEENT: Reports: No Symptoms Pulmonary: Reports: No Symptoms Cardiovascular: Reports: No Symptoms Gastrointestinal: Reports: No Symptoms Genitourinary: Reports: No Symptoms Musculoskeletal: Reports: No Symptoms Skin: Reports: No Symptoms Neurological: Reports: No Symptoms Psychiatric: Reports: No Symptoms - Patient Data Vital Signs - Most Recent: Last Vital Signs Temp 36.5 C 09/13/19 04:22 Pulse 83 09/13/19 04:22 Resp 15 09/13/19 04:22 BP 113/59 L 09/13/19 04:22 Pulse Ox 97 09/13/19 04:22 Weight - Most Recent: 86.636 kg Med Orders - Current: Current Medications Bisacodyl (Dulcolax) 10 mg RECTAL ONETIME PRN PRN Reason: Constipation Butorphanol Tartrate (Stadol) 1 mg IVPUSH Q1H PRN PRN Reason: Pain Carboprost Tromethamine (Hemabate Ds) 250 mcg IM ASDIRECTED PRN PRN Reason: Post Hemorrhage Diphenhydramine HCl (Benadryl) 25 mg IVPUSH Q6H PRN PRN Reason: Itching or Nausea Docusate Sodium (Colace) 100 mg PO BID [facility] Last Admin: 09/12/19 21:18 Dose: 100 mg Emollient Ointment (Lansinoh Hpa) 0 gm TOP ASDIRECTED PRN PRN Reason: Sore Nipples Last Admin: 09/11/19 23:37 Dose: 1 bottle Fentanyl (Sublimaze) 50 mcg IVPUSH Q1H PRN PRN Reason: Pain (severe 7-10) Last Admin: 09/10/19 23:32 Dose: 50 mcg Lactated Ringer's (Ringers, Lactated) 1,000 mls @ 150 mls/hr IV ASDIRECTED [facility] Last Admin: 09/10/19 20:04 Dose: 999 mls/hr Oxytocin/Sodium Chloride (Oxytocin 30 Unit/500 Ml-Ns) 30 unit in 500 mls @ 999 mls/hr IV TITRATE [facility] Oxytocin/Sodium Chloride (Oxytocin 30 Unit/500 Ml-Ns) 30 unit in 500 mls @ 2 mls/hr IV TITRATE [facility]; Protocol Last Titration: 09/10/19 18:16 Dose: 3 munits/min, 3 mls/hr Tranexamic Acid 1,000 mg/ (Sodium Chloride) 110 mls @ 660 mls/hr IV ONETIME PRN PRN Reason: Bleeding Lactated Ringer's (Ringers, Lactated) 1,000 mls @ 125 mls/hr IV ASDIRECTED REPLACED BY [facility] Tranexamic Acid 1,000 mg/ (Sodium Chloride) 110 mls @ 660 mls/hr IV ONETIME PRN PRN Reason: Bleeding Ibuprofen (Motrin) 800 mg PO Q8H PRN PRN Reason: mild pain or fever Last Admin: 09/13/19 00:57 Dose: 800 mg Lidocaine HCl (Xylocaine 1%) 50 ml INJECT ONETIME PRN PRN Reason: Laceration repair Methylergonovine Maleate (Methergine) 0.2 mg IM ASDIRECTED PRN PRN Reason: Post Hemorrhage Methylergonovine Maleate (Methergine) 0.2 mg IM ONETIME PRN PRN Reason: Excessive Vaginal Bleeding Misoprostol (Cytotec) 200 mcg PO ONETIME PRN PRN Reason: Post Hemorrhage Misoprostol (Cytotec) 25 mcg VAG ONETIME PRN PRN Reason: Cervical Ripening Last Admin: 09/10/19 06:30 Dose: 25 mcg Misoprostol (Cytotec) 25 mcg VAG Q4H PRN PRN Reason: Cervical Ripening Last Admin: 09/10/19 11:45 Dose: 25 mcg Misoprostol (Cytotec) 25 mcg PO Q4H [facility] Last Admin: 09/10/19 11:45 Dose: 25 mcg Misoprostol (Cytotec) 1,000 mcg RECTAL ONETIME PRN PRN Reason: excessive bleeding Nalbuphine HCl (Nubain) 10 mg IVPUSH Q1H PRN PRN Reason: Pain (severe 7-10) Last Admin: 09/10/19 14:18 Dose: 10 mg Nalbuphine HCl (Nubain) 5 mg IVPUSH ASDIRECTED PRN PRN Reason: Itching Ondansetron HCl (Zofran) 4 mg IVPUSH Q4H PRN PRN Reason: Nausea/Vomiting Ondansetron HCl (Zofran) 4 mg IVPUSH Q6H PRN PRN Reason: Nausea Ondansetron HCl (Zofran) 4 mg IVPUSH Q4H PRN PRN Reason: Nausea/Vomiting Oxycodone/Acetaminophen (Percocet 325-5 Mg) 2 tab PO Q6H PRN PRN Reason: Pain (moderate 4-6) Oxycodone/Acetaminophen (Percocet 325-5 Mg) 1 tab PO Q4H PRN PRN Reason: Pain (moderate 4-6) Last Admin: 09/12/19 17:25 Dose: 1 tab Oxycodone/Acetaminophen (Percocet 325-5 Mg) 2 tab PO Q4H PRN PRN Reason: Pain (moderate 4-6) Last Admin: 09/12/19 00:03 Dose: 2 tab Oxytocin (Pitocin) 10 unit IM ASDIRECTED PRN PRN Reason: Excessive Vaginal Bleeding Simethicone (Simethicone) 160 mg PO QID [facility] Last Admin: 09/13/19 00:57 Dose: 160 mg Sodium Chloride (Saline Flush) 10 ml FLUSH ASDIRECTED PRN PRN Reason: Keep Vein Open Sodium Chloride (Saline Flush) 2.5 ml FLUSH ASDIRECTED PRN PRN Reason: Keep Vein Open Sodium Chloride (Normal Saline) 10 ml IV ASDIRECTED PRN PRN Reason: IV Use Sterile Water (Sterile Water For Irrigation) 1,000 ml IRR ASDIRECTED PRN PRN Reason: delivery Terbutaline Sulfate (Brethine) 0.25 mg SUBCUT ASDIRECTED PRN PRN Reason: Tacysystole Last Admin: 09/10/19 21:40 Dose: 0.25 mg Discontinued Medications Bupivacaine HCl (Marcaine 0.5%) Confirm Administered Dose 30 ml .ROUTE .STK-MED ONE Stop: 09/10/19 21:59 Cefazolin Sodium (Ancef) Confirm Administered Dose 2 gm .ROUTE .STK-MED ONE Stop: 09/10/19 22:10 Diphenhydramine HCl (Benadryl) 25 mg IVPUSH Q4H PRN PRN Reason: Itching Stop: 09/11/19 22:39 Fentanyl (Sublimaze) Confirm Administered Dose 250 mcg .ROUTE .STK-MED ONE Stop: 09/10/19 22:25 Fentanyl/Bupivacaine HCl (Fentanyl/Bupivacaine/Ns 2 Mcg-0.125% 250 Ml) Confirm Administered Dose 250 mls @ as directed .ROUTE .STK-MED ONE Stop: 09/10/19 16:01 Sodium Chloride (Normal Saline) Confirm Administered Dose 20 mls @ as directed .ROUTE .STK-MED ONE Stop: 09/10/19 22:10 Ibuprofen (Motrin) 800 mg PO Q8H PRN PRN Reason: mild pain or fever Stop: 09/12/19 00:01 Ketorolac Tromethamine (Toradol) 30 mg IVPUSH Q6H [facility] Stop: 09/11/19 23:01 Last Admin: 09/12/19 10:07 Dose: Not Given Lidocaine (Xylocaine-Mpf 2%) Confirm Administered Dose 5 ml .ROUTE .STK-MED ONE Stop: 09/10/19 22:48 Misoprostol (Cytotec) 25 mcg PO ONETIME ONE Stop: 09/10/19 06:26 Last Admin: 09/10/19 06:30 Dose: 25 mcg Morphine Sulfate (Duramorph Pf) Confirm Administered Dose 10 mg .ROUTE .STK-MED ONE Stop: 09/10/19 22:25 Naloxone HCl (Narcan) 0.1 mg IVPUSH ONETIME PRN PRN Reason: Respiratory Depression Stop: 09/11/19 22:39 Octyl Cyanoacrylate (Dermabond Advance) Confirm Administered Dose 1 applic .ROUTE .STK-MED ONE Stop: 09/10/19 22:50 Oxytocin (Pitocin) Confirm Administered Dose 20 unit .ROUTE .STK-MED ONE Stop: 09/10/19 22:18 Oxytocin (Pitocin) Confirm Administered Dose 20 unit .ROUTE .STK-MED ONE Stop: 09/10/19 23:16 Phenylephrine HCl (Phenylephrine In Ns 100 Mcg/Ml) Confirm Administered Dose 1 mg .ROUTE .STK-MED ONE Stop: 09/10/19 22:30 Propofol (Diprivan 20 Ml) Confirm Administered Dose 200 mg .ROUTE .STK-MED ONE Stop: 09/10/19 22:18 Rocuronium [place] (Zemuron) Confirm Administered Dose 100 mg .ROUTE .STK-MED ONE Stop: 09/10/19 22:49 Succinylcholine Chloride (Succinylcholine Chloride) Confirm Administered Dose 200 mg .ROUTE .STK-MED ONE Stop: 09/10/19 22:49 - Infant Interaction Disposition, : [place] in Room with Family Infant Interaction: Holding Infant Feeding: Breastfed ; Nursed Well Support Person: Significant Other - Recovery Exam Fundal Tone: Firm Fundal Level: 2 Fingerbreadths Below Umbilicus Fundal Placement: Midline Lochia Amount: Scant Lochia Color: Rubra/Red Perineum Description: Intact, Minimal Bruising/Swelling Episiotomy/Laceration: None Bladder Status: Voiding Urinary Elimination: Voided - Exam General: Alert, Oriented Neck: Supple Lungs: Normal Respiratory Effort GI/Abdominal Exam: Soft, Non-Tender, No Distention Extremities: Normal Inspection, Non-Tender, No Pedal Edema Skin: Warm, Dry, Intact Wound/Incisions: Healing Well, Erythema (mild surrounding erythema extending 3- 4 cm.) Neurological: No New Focal Deficit Psy/Mental Status: Alert, Normal Affect, Normal Mood - Problem List & Annotations (1) Delivery by section SNOMED Code(s): 950229397 Code(s): [id number] - Status: Acute Current Visit: Yes - Problem List Review Problem List Initiated/Reviewed/Updated: Yes - My Orders Last 24 Hours: My Active Orders 09/13/19 08:17 Ready for Discharge [RC] PER UNIT ROUTINE - Assessment Assessment:: POD 3 status post Primary LTCS for intolerance to labor Anemia asymptomatic, mild erythema surrounding incision, afebrile, no drainage, will dismiss to antibiotic. Discharge precautions reviewed. - Plan Plan:: Dismiss to home, discharge precautions reviewed.
[2019-09-13] MEDS: Docusate Sodium 100 MG Cap PO SCH (08:53)
== END 2019-09-13 14:45 | disposition home or self-care (01) | DRG 540 ==
LOC: MW.OBCHECK 05:23 → MW.OB 05:24 → MW.OBCHECK 06:01 → MW.OB 06:01 → OBSVTOIN 22:24 → MW.OB 09-11 02:34
PROVIDERS: ADMIT Obstetrics & Gynecology; ATTEND Obstetrics & Gynecology
PROC: 10D00Z1 Extraction of Products of Conception, Low, Open Approach (ICD-10-PCS; principal; 2019-09-10)
PROC: 10907ZC Drainage of Amniotic Fluid, Therapeutic from Products of Conception, Via Natural or Artificial Opening (ICD-10-PCS; 2019-09-10)
PROC: 3E0P7VZ Introduction of Hormone into Female Reproductive, Via Natural or Artificial Opening (ICD-10-PCS; 2019-09-10)
DX: O48.0 Post-term pregnancy (principal); Z3A.40 40 weeks gestation of pregnancy; Z37.0 Single live birth; O76 Abnormality in fetal heart rate and rhythm complicating labor and delivery; O99.334 Smoking (tobacco) complicating childbirth; F17.210 Nicotine dependence, cigarettes, uncomplicated; Z88.0 Allergy status to penicillin
CPT/HCPCS: 01967; 01968; 36415; 51702; 59025; 82803; 85014; 85018; 85027; 86593; 86850; 86900; 86901; A9270-GY; J0330; J0690; J1885; J2001; J2270; J2300; J2370; J2590; J2704; J3010; J3105; J7120

== ENCOUNTER 2020-12-07 22:39 | Emergency (ER) | payer BC, OTHER ==
[2020-12-07] MEDS ORDERED: Sodium Chloride 0.9% 1,000 ML IV ONE (23:15)
[2020-12-07] MEDS ORDERED: Sodium Chloride 0.9% 2.5 ML Syringe FLUSH PRN (23:15)
[2020-12-07] MEDS ORDERED: Alum Hydrox/Mag Hydrox/Simeth 15 ML, Lidocaine 2% 5 ML PO ONE ×2 (23:15)
[2020-12-07] MEDS ORDERED: Pantoprazole 40 MG in Sodium Chloride 0.9% 10 ML IV ONE (23:15)
[2020-12-07] MEDS ORDERED: Sodium Chloride 0.9% 10 ML Syringe FLUSH PRN (23:15)
[2020-12-07] MEDS ORDERED: Ondansetron 4 MG/2 ML SDV IVPUSH ONE (23:15)
[2020-12-07] MEDS ORDERED: Aluminum Hydroxide/Magnesium Hydroxide/Simethicone Susp 30 ML Cup ONE (23:36)
[2020-12-07] MEDS ORDERED: Ketorolac 30 MG/ML SDV IVPUSH ONE (23:48)
[2020-12-07 23:56] LABS: BLOOD UREA NITROGEN,BUN 9 mg/dL (7.0-18.0); CARBON DIOXIDE,CO2 27.5 mmol/L (21.0-32.0); CHLORIDE,CL 104 mmol/L (98-107); GLUCOSE RANDOM 88 mg/dL (74-106); LIPASE 87 U/L (73-393); POTASSIUM,K 3.7 mmol/L (3.5-5.1); SODIUM,NA 141 mmol/L (136-145)
--- NOTE | 2020-12-08 00:16 | EDM.PDOC ---
ED HPI GENERAL MEDICAL PROBLEM - General Chief Complaint: Abdominal Pain Stated Complaint: ABDOMINAL PAIN Time Seen by Provider: 12/07/20 22:57 - History of Present Illness INITIAL COMMENTS - FREE TEXT/NARRATIVE: HISTORY AND PHYSICAL: History of present illness: Is a 20-year-old healthy female who presents ER today complaining of midepigastric abdominal discomfort with pain radiating to her left upper quadrant times 7 PM. Patient denies any recent fevers, shakes, chills. Patient denies any nausea, vomiting, diarrhea, dysuria, frequency, urgency, chest pain, shortness of breath. Patient denies any melena or bright red blood per rectum. Patient reports that she is currently on the tail end of her menses. Patient reports her last p.o. intake was at 4 PM when she had some green beans and soup. Patient denies any other sick family contacts. Patient reports that she did not have any similar discomfort in the past. Review of systems: As per history of present illness and below otherwise all systems reviewed and negative. Past medical history: As per history of present illness and as reviewed below otherwise noncontributory. Surgical history: As per history of present illness and as reviewed below otherwise noncontributory. Social history: No reported history of drug or alcohol abuse. Family history: As per history of present illness and as reviewed below otherwise noncontributory. Physical exam: This patient was seen and evaluated during the 2019 SARS-CoV-2 novel coronavirus pandemic period. Community viral transmission is ongoing at time of this encounter and the emergency department is operating under pandemic response procedures. Constitutional: Patient is oriented to person, place, and time. Appears well- developed and well-nourished. No distress. HEENT: Moist mucous membranes Head: Normocephalic and atraumatic Eyes: Right eye exhibits no discharge. Left eye exhibits no discharge. No scleral icterus Neck: Normal range of motion. No tracheal deviation present. Cardiovascular: Normal rate and regular rhythm. Pulmonary: Effort normal, no respiratory distress. Abd: Soft, nondistended, no rebound/guarding, no psoas or obturator signs, no tenderness at Mcberney's point, no Mckay's sign. Pt does not present with an exam that would be consistent with an acute surgical abdomen at this time. Patient with mild tenderness to palpation of the midepigastric region greater than left upper quadrant greater than right upper quadrant. Patient has no pain or discomfort in her lower abdomen. Musculoskeletal: Normal range of motion Neurologic: Alert and oriented to person, place and time. Skin: Maish Vaya, warm and dry. Psychiatric: Normal mood and affect. Behavior is normal. Judgment and thought content normal. Nursing note and vital signs have been reviewed Diagnostics: CBC, CMP, lipase, urinalysis all normal. Patient is requesting a CT scan of the abdomen pelvis. I have discussed with the patient the risks and benefits including risk of cancer with radiation and she is requesting the CT scan. CT scan of the abdomen pelvis reveals no acute pathology. Therapeutics: Protonix, GI cocktail without any significant relief. Patient given Toradol 15 mg IV without any significant relief. Assessment and plan: 20-year-old female who presents ER today complaining of midepigastric abdominal discomfort. Patient's exam is not consistent with an acute surgical abdomen. Patient's work-up in the ER has been unremarkable. Etiology of her pain is unclear. Patient be discharged home with instructions to follow-up with her primary care physician for further evaluation. Reassessment at the time of disposition demonstrates that the patient is in no acute distress. The patient has remained stable throughout the entire ED visit and is without objective evidence for acute process requiring urgent intervention or hospitalization. The patient is stable for discharge, counseling is provided as documented above, discussed symptomatic treatment and specific conditions for return. I have spoken with the patient/caregiver and discussed todays findings, in addition to providing specific details for the plan of care. Questions are answered and there is agreement with the plan. Definitive disposition and diagnosis as appropriate pending reevaluation and review of above. abdominal Pain Score (Numeric/FACES): 2 - Related Data Allergies Allergy/AdvReac Type Severity Reaction Status Date / Time Penicillins Allergy Hives Verified 12/07/20 22:51 Home Meds: Home Meds Non-Formulary Medication [NF Drug] 1 each PO DAILY 12/07/20 [History] Ondansetron [Zofran ODT] 4 mg PO Q6H PRN #12 tab.dis 12/08/20 [Rx] Past Medical History - Past Health History Medical/Surgical History: Denies Medical/Surgical History HEENT History: Reports: None Cardiovascular History: Reports: None Respiratory History: Reports: Asthma Other Respiratory History: Exercise induced asthma Gastrointestinal History: Reports: None 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: Musculoskeletal History: Reports: None Neurological History: Reports: None Psychiatric History: Reports: None Endocrine/Metabolic History: Reports: None Hematologic History: Reports: None - Infectious Disease History Infectious Disease History: Reports: None - Past Surgical History Female Surgical History: Reports: Section Social & Family History - Family History Family Medical History: No Pertinent Family History - Tobacco Use Tobacco Use Status *Q: Never Tobacco User - Caffeine Use Caffeine Use: Reports: Energy Drinks - Recreational Drug Use Recreational Drug Use: No ED ROS GENERAL - Review of Systems Review Of Systems: See Below ED EXAM, GENERAL - Physical Exam Exam: See Below Course - Vital Signs Last Recorded V/S: Last Vital Signs Temp 96.9 F 12/07/20 22:52 Pulse 72 12/08/20 00:50 Resp 16 12/08/20 00:50 BP 103/63 12/08/20 00:50 Pulse Ox 100 12/08/20 00:50 - Orders/Labs/Meds Orders: Active Orders 24 hr Category Date Time Status Sodium Chloride 0.9% [Saline Flush] Med 12/07/20 23:15 Active 10 ml FLUSH ASDIRECTED PRN Sodium Chloride 0.9% [Saline Flush] Med 12/07/20 23:15 Active 2.5 ml FLUSH ASDIRECTED PRN Saline Lock Insert [OM.PC] Stat Oth 12/07/20 23:15 Ordered Medication Orders Sodium Chloride (Sodium Chloride 0.9% 10 Ml Syringe) 10 ml FLUSH ASDIRECTED PRN PRN Reason: Keep Vein Open Last Admin: 12/07/20 23:30 Dose: 10 ml Documented by: DANNA Sodium Chloride (Sodium Chloride 0.9% 2.5 Ml Syringe) 2.5 ml FLUSH ASDIRECTED PRN PRN Reason: Keep Vein Open Last Admin: 12/07/20 23:30 Dose: 2.5 ml Documented by: DANNA Labs: Laboratory Tests 12/07/20 12/07/20 12/07/20 Range/Units 23:19 23:19 23:28 WBC 5.45 (4.0-11.0) K/uL RBC 4.78 (4.30-5.90) M/uL Hgb 14.6 (12.0-16.0) g/dL Hct 42.9 (36.0-46.0) % MCV 89.7 (80.0-98.0) fL MCH 30.5 (27.0-32.0) pg MCHC 34.0 (31.0-37.0) g/dL RDW Std Deviation 41.5 (28.0-62.0) fl RDW Coeff of Ariadna 13 (11.0-15.0) % Plt Count 209 (150-400) K/uL MPV 10.20 (7.40-12.00) fL Neut % (Auto) 49.4 (48.0-80.0) % Lymph % (Auto) 37.1 (16.0-40.0) % Graham % (Auto) 8.4 (0.0-15.0) % Eos % (Auto) 4.4 (0.0-7.0) % Baso % (Auto) 0.7 (0.0-1.5) % Neut # (Auto) 2.7 (1.4-5.7) K/uL Lymph # (Auto) 2.0 (0.6-2.4) K/uL Graham # (Auto) 0.5 (0.0-0.8) K/uL Eos # (Auto) 0.2 (0.0-0.7) K/uL Baso # (Auto) 0.0 (0.0-0.1) K/uL Nucleated RBC % 0.0 /100WBC Nucleated RBCs # 0 K/uL Sodium (136-145) mmol/L Potassium (3.5-5.1) mmol/L Chloride (98-107) mmol/L Carbon Dioxide (21.0-32.0) mmol/L BUN (7.0-18.0) mg/dL Creatinine (0.6-1.0) mg/dL Est Cr Clr Drug Dosing mL/min Estimated GFR (MDRD) ml/min Glucose (74-106) mg/dL Calcium (8.5-10.1) mg/dL Total Bilirubin (0.2-1.0) mg/dL AST (15-37) IU/L ALT (14-63) IU/L Alkaline Phosphatase (46-116) U/L Total Protein (6.4-8.2) g/dL Albumin (3.4-5.0) g/dL Globulin (2.6-4.0) g/dL Albumin/Globulin Ratio (0.9-1.6) Lipase (73-393) U/L Urine Color YELLOW Urine Appearance SLT CLOUDY Urine pH 7.0 (5.0-8.0) Ur Specific [place] 1.020 (1.001-1.035) Urine Protein NEGATIVE (NEGATIVE) mg/dL Urine Glucose (UA) NEGATIVE (NEGATIVE) mg/dL Urine Ketones NEGATIVE (NEGATIVE) mg/dL Urine Occult Blood NEGATIVE (NEGATIVE) Urine Nitrite NEGATIVE (NEGATIVE) Urine Bilirubin NEGATIVE (NEGATIVE) Urine Urobilinogen 0.2 (<2.0) EU/dL Ur Leukocyte Esterase NEGATIVE (NEGATIVE) Urine HCG, Qual NEGATIVE (NEGATIVE) 12/07/20 Range/Units 23:28 WBC (4.0-11.0) K/uL RBC (4.30-5.90) M/uL Hgb (12.0-16.0) g/dL Hct (36.0-46.0) % MCV (80.0-98.0) fL MCH (27.0-32.0) pg MCHC (31.0-37.0) g/dL RDW Std Deviation (28.0-62.0) fl RDW Coeff of Ariadna (11.0-15.0) % Plt Count (150-400) K/uL MPV (7.40-12.00) fL Neut % (Auto) (48.0-80.0) % Lymph % (Auto) (16.0-40.0) % Graham % (Auto) (0.0-15.0) % Eos % (Auto) (0.0-7.0) % Baso % (Auto) (0.0-1.5) % Neut # (Auto) (1.4-5.7) K/uL Lymph # (Auto) (0.6-2.4) K/uL Graham # (Auto) (0.0-0.8) K/uL Eos # (Auto) (0.0-0.7) K/uL Baso # (Auto) (0.0-0.1) K/uL Nucleated RBC % /100WBC Nucleated RBCs # K/uL Sodium 141 (136-145) mmol/L Potassium 3.7 (3.5-5.1) mmol/L Chloride 104 (98-107) mmol/L Carbon Dioxide 27.5 (21.0-32.0) mmol/L BUN 9 (7.0-18.0) mg/dL Creatinine 0.7 (0.6-1.0) mg/dL Est Cr Clr Drug Dosing 128.24 mL/min Estimated GFR (MDRD) > 60.0 ml/min Glucose 88 (74-106) mg/dL Calcium 9.1 (8.5-10.1) mg/dL Total Bilirubin 0.4 (0.2-1.0) mg/dL AST 22 (15-37) IU/L ALT 45 (14-63) IU/L Alkaline Phosphatase 71 (46-116) U/L Total Protein 7.8 (6.4-8.2) g/dL Albumin 4.1 (3.4-5.0) g/dL Globulin 3.7 (2.6-4.0) g/dL Albumin/Globulin Ratio 1.1 (0.9-1.6) Lipase 87 (73-393) U/L Urine Color Urine Appearance Urine pH (5.0-8.0) Ur Specific [place] (1.001-1.035) Urine Protein (NEGATIVE) mg/dL Urine Glucose (UA) (NEGATIVE) mg/dL Urine Ketones (NEGATIVE) mg/dL Urine Occult Blood (NEGATIVE) Urine Nitrite (NEGATIVE) Urine Bilirubin (NEGATIVE) Urine Urobilinogen (<2.0) EU/dL Ur Leukocyte Esterase (NEGATIVE) Urine HCG, Qual (NEGATIVE) Meds: Medications Generic Name Dose Route Start Last Admin Trade Name Isabella PRN Reason Stop Dose Admin Sodium Chloride 10 ml 12/07/20 23:15 12/07/20 23:30 Sodium Chloride 0.9% 10 Ml Syringe FLUSH 10 ml ASDIRECTED PRN Administration Keep Vein Open Sodium Chloride 2.5 ml 12/07/20 23:15 12/07/20 23:30 Sodium Chloride 0.9% 2.5 Ml Syringe FLUSH 2.5 ml ASDIRECTED PRN Administration Keep Vein Open Discontinued Medications Generic Name Dose Route Start Last Admin Trade Name Isabella PRN Reason Stop Dose Admin Al Hydroxide/Mg Hydroxide Confirm 12/07/20 23:36 12/07/20 23:58 Aluminum Hydroxide/Magnesium Hydroxide/Simethicone Susp 30 Ml Cup Administered 12/07/20 23:37 Not Given Dose 30 ml .ROUTE .STK-MED ONE Al Hydroxide/Mg Hydroxide 15 0 ml 12/07/20 23:15 12/07/20 23:30 ml/ Lidocaine HCl 5 ml PO 12/07/20 23:16 1 each ONETIME ONE Administration Pantoprazole Sodium 40 mg/ 10 mls @ 300 mls/hr 12/07/20 23:15 12/07/20 23:31 Sodium Chloride IV 12/07/20 23:16 300 mls/hr NOW ONE Administration Sodium Chloride 1,000 mls @ 999 mls/hr 12/07/20 23:15 12/07/20 23:30 Normal Saline IV 12/08/20 00:15 999 mls/hr .Bolus ONE Administration Iopamidol 100 ml 12/08/20 00:45 12/08/20 00:46 Iopamidol 755 Mg/Ml 500 Ml Multipack Bottle IVPUSH 12/08/20 00:46 100 ml ONETIME STA Administration Ketorolac Tromethamine 30 mg 12/07/20 23:48 12/08/20 00:04 Ketorolac 30 Mg/Ml Sdv IVPUSH 12/07/20 23:49 30 mg ONETIME ONE Administration Ondansetron HCl 4 mg 12/07/20 23:15 12/07/20 23:31 Ondansetron 4 Mg/2 Ml Sdv IVPUSH 12/07/20 23:16 4 mg ONETIME ONE Administration Departure - Departure Time of Disposition: 01:15 Disposition: Home, Self-Care 01 Condition: Good Clinical Impression: Abdominal pain - Discharge Information Instructions: Abdominal Pain, Adult, [id number] Referrals: Jules Jhaveri [Primary Care Provider] - Forms: ED Department Discharge Additional Instructions: Your seen and evaluated in the ER today secondary to your stomach pain. Your blood test and CT scan were all normal. The etiology of your pain is unclear however no emergent source was identified. You'll be given a prescription for Zofran to help settle your stomach and will help with nausea. I would recommend trying [id number] Prilosec 20 mg daily for 2 weeks to see if it might help. Please maintain a bland diet over the next several days to see if that might help as well. Please make an appointment to see your family doctor within the next 1 to 2 days for reevaluation. Return to the ER if the pain worsens or you have any new or concerning symptoms. The following information is given to patients seen in the emergency department who are being discharged to home. This information is to outline your options for follow-up care. We provide all patients seen in our emergency department with a follow-up referral. The need for follow-up, as well as the timing and circumstances, are variable depending upon the specifics of your emergency department visit. If you don't have a primary care physician on staff, we will provide you with a referral. We always advise you to contact your personal physician following an emergency department visit to inform them of the circumstance of the visit and for follow-up with them and/or the need for any referrals to a consulting specialist. The emergency department will also refer you to a specialist when appropriate. This referral assures that you have the opportunity for follow-up care with a specialist. All of these measure are taken in an effort to provide you with optimal care, which includes your follow-up. Under all circumstances we always encourage you to contact your private physician who remains a resource for coordinating your care. When calling for follow-up care, please make the office aware that this follow-up is from your recent emergency room visit. If for any reason you are refused follow-up, please contact the [facility] Emergency Department at and asked to speak to the emergency department charge nurse. [facility] [address] [place] [id number] [place] [address] Sepsis Event Note (ED) - Evaluation Sepsis Screening Result: No Definite Risk - Focused Exam Vital Signs: Vital Signs Temp Pulse Resp BP Pulse Ox 12/08/20 00:50 72 16 103/63 100 12/07/20 22:52 96.9 F 76 16 113/76 96 - My Orders Last 24 Hours: My Active Orders 12/07/20 23:15 Sodium Chloride 0.9% [Saline Flush] 10 ml FLUSH ASDIRECTED PRN Sodium Chloride 0.9% [Saline Flush] 2.5 ml FLUSH ASDIRECTED PRN Saline Lock Insert [OM.PC] Stat - Assessment/Plan Last 24 Hours: My Active Orders 12/07/20 23:15 Sodium Chloride 0.9% [Saline Flush] 10 ml FLUSH ASDIRECTED PRN Sodium Chloride 0.9% [Saline Flush] 2.5 ml FLUSH ASDIRECTED PRN Saline Lock Insert [OM.PC] Stat
[2020-12-08] MEDS ORDERED: Iopamidol 755 MG/ML 500 ML Multipack Bottle IVPUSH STA (00:45)
--- NOTE | 2020-12-08 01:08 | CT ---
INDICATION: Abdominal pain. COMPARISON: None available TECHNIQUE: CT examination of the abdomen and pelvis was performed with the uneventful intravenous administration of 100 cc of Isovue 370 while 2.5 mm thick axial sections were obtained from the lung bases through the pubic symphysis. Oral contrast was not administered. Please note that all CT scans at this facility use dose modulation, iterative reconstruction, and/or weight-based dosing when appropriate to reduce radiation dose to as low as reasonably achievable. FINDINGS: In the abdomen, the liver there is a vague low density region in the medial segment of the left lobe of the liver adjacent to the falciform ligament, consistent with a hemangioma or focal fatty infiltration. This is a common incidental finding and requires no further followup. There is no sign of any other abnormality in the liver. The spleen, pancreas, and adrenals are normal in appearance. The kidneys are normal in appearance. The gallbladder is normal in appearance. The abdominal aorta is normal in caliber with no sign of dilatation. There is no sign of retroperitoneal mass or adenopathy. The stomach, loops of small bowel, and colon in the abdomen are normal in appearance. In the pelvis, the appendix is nonvisualized, but there is no sign of an inflammatory process in the area of the appendix. The loops of small bowel and colon in the pelvis are normal in appearance. The uterus and adnexal regions are normal in appearance. The urinary bladder is normal in appearance. There is no sign of pelvic or inguinal mass or adenopathy. There is no sign of free air or free fluid in the abdomen or pelvis. The lung bases are clear. The osseous structures are normal in appearance for the patient`s age. IMPRESSION: Nothing seen to explain the patient`s abdominal pain. Normal appearance of the bowel and pancreas. CT of the abdomen shows incidental finding of a hemangioma or focal fatty infiltration in the left lobe of the liver of no clinical concern. Normal CT of the pelvis with contrast. Unable to identify the appendix. Please note that all CT scans at this facility use dose modulation, iterative reconstruction, and/or weight-based dosing when appropriate to reduce radiation dose to as low as reasonably achievable. Dictated by Rufino Robles MD @ Dec 08 2020 1:00AM Signed by Dr. Rufino Robles @ Dec 08 2020 1:06AM
== END 2020-12-08 01:26 | disposition home or self-care (01) ==
LOC: MW.ED 22:39
DX: R10.12 Left upper quadrant pain (principal); Z88.0 Allergy status to penicillin; Z79.899 Other long term (current) drug therapy
CPT/HCPCS: 36415; 74177; 80053; 81003; 81025; 83690; 85025; 96374; 96375; 99284; A9270; C9113; J1885; J2405; J7030; Q9967

== ENCOUNTER 2021-01-10 23:16 | Emergency (ER) | payer BC, OTHER ==
[2021-01-10] MEDS ORDERED: Ondansetron 4 MG/2 ML SDV IVPUSH ONE (23:56)
[2021-01-10] MEDS ORDERED: Sodium Chloride 0.9% 1,000 ML IV ONE (23:56)
[2021-01-10] MEDS ORDERED: Sodium Chloride 0.9% 10 ML Syringe FLUSH PRN (23:56)
[2021-01-10] MEDS ORDERED: Sodium Chloride 0.9% 2.5 ML Syringe FLUSH PRN (23:56)
[2021-01-11 00:24] LABS: BLOOD UREA NITROGEN,BUN 7 mg/dL (7.0-18.0); CARBON DIOXIDE,CO2 27.8 mmol/L (21.0-32.0); CHLORIDE,CL 105 mmol/L (98-107); GLUCOSE RANDOM 102 mg/dL (74-106); POTASSIUM,K 3.5 mmol/L (3.5-5.1); SODIUM,NA 142 mmol/L (136-145)
--- NOTE | 2021-01-11 01:19 | EDM.PDOC ---
ED HPI GENERAL MEDICAL PROBLEM - General Chief Complaint: Gastrointestinal Problem Stated Complaint: BLOODY STOOLS Time Seen by Provider: 01/10/21 23:45 - History of Present Illness INITIAL COMMENTS - FREE TEXT/NARRATIVE: HISTORY AND PHYSICAL: History of present illness: This is a healthy 20-year-old female who presents ER today complaining of multiple bouts of diarrhea over the last 2 days. Patient reports that yesterday she started having diarrhea and reports she been having bowel movements almost every hour. Patient reports today she came to the ED secondary to having some blood-streaked stool. Patient denies any recent fevers, shakes, chills, nausea, vomiting, dysuria, frequency, urgency. Patient reports she is currently not on her menses. Patient reports some abdominal discomfort in the left lower abdomen when she is having diarrhea. Patient denies any recent antibiotic use. Patient denies any new medications or diet. Patient denies any travel. Patient denies any sick contacts. Patient reports that she been able to tolerate p.o. liquids very well has been drinking lots of fluid Gatorade. Review of systems: As per history of present illness and below otherwise all systems reviewed and negative. Past medical history: As per history of present illness and as reviewed below otherwise noncontributory. Surgical history: As per history of present illness and as reviewed below otherwise noncon tributory. Social history: No reported history of drug or alcohol abuse. Family history: As per history of present illness and as reviewed below otherwise noncontributory. Physical exam: This patient was seen and evaluated during the 2019 SARS-CoV-2 novel coronavirus pandemic period. Community viral transmission is ongoing at time of this encounter and the emergency department is operating under pandemic response procedures. Constitutional: Patient is oriented to person, place, and time. Appears well- developed and well-nourished. No distress. HEENT: Moist mucous membranes Head: Normocephalic and atraumatic Eyes: Right eye exhibits no discharge. Left eye exhibits no discharge. No scleral icterus Neck: Normal range of motion. No tracheal deviation present. Cardiovascular: Normal rate and regular rhythm. Pulmonary: Effort normal, no respiratory distress. Abd: Soft, nondistended, no rebound/guarding, no psoas or obturator signs, no tenderness at Mcberney's point, no Mckay's sign. Pt does not present with an exam that would be consistent with an acute surgical abdomen at this time, minimal tenderness to palpation suprapubic/left lower quadrant Musculoskeletal: Normal range of motion Neurologic: Alert and oriented to person, place and time. Skin: [place], warm and dry. Psychiatric: Normal mood and affect. Behavior is normal. Judgment and thought content normal. Nursing note and vital signs have been reviewed Diagnostics: [] Therapeutics: [] Assessment and plan: 20-year-old who presents ER today with copious amounts of diarrhea. Patient's labs are all within normal limits. Patient has been given hydration here in the ED and reports she does feel better. Patient's labs are all within normal limits. Patient has stool cultures that were sent. In the interim given the amount of diarrhea she will be started on Flagyl 500 mg 3 times a day for 7 days. Reassessment at the time of disposition demonstrates that the patient is in no acute distress. The patient has remained stable throughout the entire ED visit and is without objective evidence for acute process requiring urgent intervention or hospitalization. The patient is stable for discharge, counseling is provided as documented above, discussed symptomatic treatment and specific conditions for return. I have spoken with the patient/caregiver and discussed todays findings, in addition to providing specific details for the plan of care. Questions are answered and there is agreement with the plan. Definitive disposition and diagnosis as appropriate pending reevaluation and review of above. - Related Data Allergies Allergy/AdvReac Type Severity Reaction Status Date / Time Penicillins Allergy Hives Verified 01/10/21 23:36 Home Meds: Home Meds Non-Formulary Medication [NF Drug] 1 each PO DAILY 12/07/20 [History] metroNIDAZOLE [Flagyl] 500 mg PO Q8H #21 tab 01/11/21 [Rx] Past Medical History - Past Health History Medical/Surgical History: Denies Medical/Surgical History HEENT History: Reports: None Cardiovascular History: Reports: None Respiratory History: Reports: Asthma Other Respiratory History: Exercise induced asthma Gastrointestinal History: Reports: None [employer] History: Reports: Musculoskeletal History: Reports: None Neurological History: Reports: None Psychiatric History: Reports: None Endocrine/Metabolic History: Reports: None Hematologic History: Reports: None - Infectious Disease History Infectious Disease History: Reports: None - Past Surgical History Female Surgical History: Reports: Section Social & Family History - Family History Family Medical History: No Pertinent Family History - Tobacco Use Tobacco Use Status *Q: Never Tobacco User - Caffeine Use Caffeine Use: Reports: None - Recreational Drug Use Recreational Drug Use: No ED ROS GENERAL - Review of Systems Review Of Systems: See Below ED EXAM, GENERAL - Physical Exam Exam: See Below Course - Vital Signs Last Recorded V/S: Last Vital Signs Temp 97.9 F 01/11/21 01:40 Pulse 71 01/11/21 01:40 Resp 18 01/11/21 01:40 BP 115/71 01/11/21 01:40 Pulse Ox 97 01/11/21 01:40 - Orders/Labs/Meds Labs: Laboratory Tests 01/10/21 01/10/21 01/11/21 Range/Units 23:59 23:59 00:01 WBC 4.03 (4.0-11.0) K/uL RBC 4.48 (4.30-5.90) M/uL Hgb 13.8 (12.0-16.0) g/dL Hct 39.9 (36.0-46.0) % MCV 89.1 (80.0-98.0) fL MCH 30.8 (27.0-32.0) pg MCHC 34.6 (31.0-37.0) g/dL RDW Std Deviation 40.0 (28.0-62.0) fl RDW Coeff of Ariadna 13 (11.0-15.0) % Plt Count 200 (150-400) K/uL MPV 9.80 (7.40-12.00) fL Neut % (Auto) 48.6 (48.0-80.0) % Lymph % (Auto) 32.8 (16.0-40.0) % [place] % (Auto) 14.4 (0.0-15.0) % Eos % (Auto) 3.7 (0.0-7.0) % Baso % (Auto) 0.5 (0.0-1.5) % Neut # (Auto) 2.0 (1.4-5.7) K/uL Lymph # (Auto) 1.3 (0.6-2.4) K/uL [place] # (Auto) 0.6 (0.0-0.8) K/uL Eos # (Auto) 0.2 (0.0-0.7) K/uL Baso # (Auto) 0.0 (0.0-0.1) K/uL Nucleated RBC % 0.0 /100WBC Nucleated RBCs # 0 K/uL Sodium (136-145) mmol/L Potassium (3.5-5.1) mmol/L Chloride (98-107) mmol/L Carbon Dioxide (21.0-32.0) mmol/L BUN (7.0-18.0) mg/dL Creatinine (0.6-1.0) mg/dL Est Cr Clr Drug Dosing mL/min Estimated GFR (MDRD) ml/min Glucose (74-106) mg/dL Calcium (8.5-10.1) mg/dL Total Bilirubin (0.2-1.0) mg/dL AST (15-37) IU/L ALT (14-63) IU/L Alkaline Phosphatase (46-116) U/L Total Protein (6.4-8.2) g/dL Albumin (3.4-5.0) g/dL Globulin (2.6-4.0) g/dL Albumin/Globulin Ratio (0.9-1.6) Urine Color YELLOW Urine Appearance HAZY Urine pH 5.5 (5.0-8.0) Ur Specific [place] >= 1.030 (1.001-1.035) Urine Protein NEGATIVE (NEGATIVE) mg/dL Urine Glucose (UA) NEGATIVE (NEGATIVE) mg/dL Urine Ketones NEGATIVE (NEGATIVE) mg/dL Urine Occult Blood NEGATIVE (NEGATIVE) Urine Nitrite POSITIVE H (NEGATIVE) Urine Bilirubin NEGATIVE (NEGATIVE) Urine Urobilinogen 0.2 (<2.0) EU/dL Ur Leukocyte Esterase NEGATIVE (NEGATIVE) Urine RBC 0-2 (0-2/HPF) Urine WBC 0-3 (0-5/HPF) Ur Epithelial Cells FEW (NONE-FEW) Urine Bacteria 1+ H (NEGATIVE) Urine Mucus MODERATE (NONE-MOD) Urine HCG, Qual NEGATIVE (NEGATIVE) 01/11/21 Range/Units 00:01 WBC (4.0-11.0) K/uL RBC (4.30-5.90) M/uL Hgb (12.0-16.0) g/dL Hct (36.0-46.0) % MCV (80.0-98.0) fL MCH (27.0-32.0) pg MCHC (31.0-37.0) g/dL RDW Std Deviation (28.0-62.0) fl RDW Coeff of [place] (11.0-15.0) % Plt Count (150-400) K/uL MPV (7.40-12.00) fL Neut % (Auto) (48.0-80.0) % Lymph % (Auto) (16.0-40.0) % [place] % (Auto) (0.0-15.0) % Eos % (Auto) (0.0-7.0) % Baso % (Auto) (0.0-1.5) % Neut # (Auto) (1.4-5.7) K/uL Lymph # (Auto) (0.6-2.4) K/uL [place] # (Auto) (0.0-0.8) K/uL Eos # (Auto) (0.0-0.7) K/uL Baso # (Auto) (0.0-0.1) K/uL Nucleated RBC % /100WBC Nucleated RBCs # K/uL Sodium 142 (136-145) mmol/L Potassium 3.5 (3.5-5.1) mmol/L Chloride 105 (98-107) mmol/L Carbon Dioxide 27.8 (21.0-32.0) mmol/L BUN 7 (7.0-18.0) mg/dL Creatinine 0.8 (0.6-1.0) mg/dL Est Cr Clr Drug Dosing 112.21 mL/min Estimated GFR (MDRD) > 60.0 ml/min Glucose 102 (74-106) mg/dL Calcium 8.0 L (8.5-10.1) mg/dL Total Bilirubin 0.2 (0.2-1.0) mg/dL AST 30 (15-37) IU/L ALT 44 (14-63) IU/L Alkaline Phosphatase 65 (46-116) U/L Total Protein 7.1 (6.4-8.2) g/dL Albumin 3.4 (3.4-5.0) g/dL Globulin 3.7 (2.6-4.0) g/dL Albumin/Globulin Ratio 0.9 (0.9-1.6) Urine Color Urine Appearance Urine pH (5.0-8.0) Ur Specific [place] (1.001-1.035) Urine Protein (NEGATIVE) mg/dL Urine Glucose (UA) (NEGATIVE) mg/dL Urine Ketones (NEGATIVE) mg/dL Urine Occult Blood (NEGATIVE) Urine Nitrite (NEGATIVE) Urine Bilirubin (NEGATIVE) Urine Urobilinogen (<2.0) EU/dL Ur Leukocyte Esterase (NEGATIVE) Urine RBC (0-2/HPF) Urine WBC (0-5/HPF) Ur Epithelial Cells (NONE-FEW) Urine Bacteria (NEGATIVE) Urine Mucus (NONE-MOD) Urine HCG, Qual (NEGATIVE) Meds: Medications Discontinued Medications Generic Name Dose Route Start Last Admin Trade Name Freq PRN Reason Stop Dose Admin Sodium Chloride 1,000 mls @ 999 mls/hr 01/10/21 23:56 01/11/21 00:06 Normal Saline IV 01/11/21 00:56 999 mls/hr .Bolus ONE Administration Ondansetron HCl 4 mg 01/10/21 23:56 01/11/21 01:41 Ondansetron 4 Mg/2 Ml Sdv IVPUSH 01/10/21 23:57 Not Given ONETIME ONE Sodium Chloride 10 ml 01/10/21 23:56 01/11/21 00:05 Sodium Chloride 0.9% 10 Ml Syringe FLUSH 10 ml ASDIRECTED PRN Administration Keep Vein Open Sodium Chloride 2.5 ml 01/10/21 23:56 01/11/21 00:05 Sodium Chloride 0.9% 2.5 Ml Syringe FLUSH 2.5 ml ASDIRECTED PRN Administration Keep Vein Open Departure - Departure Time of Disposition: 01:22 Disposition: Home, Self-Care 01 Condition: Good Clinical Impression: Diarrhea - Discharge Information Prescriptions: metroNIDAZOLE [Flagyl] 500 mg PO Q8H #21 tab Instructions: Diarrhea, Adult, [id number] [facility] - Forms: ED Department Discharge Additional Instructions: You were seen and evaluated in the ER today secondary to your copious amounts of diarrhea. Your blood tests are all within normal limits including all your electrolytes, sodium, potassium, bicarb levels. We have sent your stool to the lab for cultures and analysis. You will be started on Flagyl 500 mg 3 times a day for 7 days pending the results of your stool tests. Please make sure you continue to drink plenty of liquids including Gatorade to assist you with keeping all your electrolytes within normal limits. The following information is given to patients seen in the emergency department who are being discharged to home. This information is to outline your options for follow-up care. We provide all patients seen in our emergency department with a follow-up referral. The need for follow-up, as well as the timing and circumstances, are variable de pending upon the specifics of your emergency department visit. If you don't have a primary care physician on staff, we will provide you with a referral. We always advise you to contact your personal physician following an emergency department visit to inform them of the circumstance of the visit and for follow-up with them and/or the need for any referrals to a consulting specialist. The emergency department will also refer you to a specialist when appropriate. This referral assures that you have the opportunity for follow-up care with a specialist. All of these measure are taken in an effort to provide you with optimal care, which includes your follow-up. Under all circumstances we always encourage you to contact your private physician who remains a resource for coordinating your care. When calling for follow-up care, please make the office aware that this follow-up is from your recent emergency room visit. If for any reason you are refused follow-up, please contact the [facility] Emergency Department at and asked to speak to the emergency department charge nurse. [facility] [address] [place] [address] [address] Sepsis Event Note (ED) - Evaluation Sepsis Screening Result: No Definite Risk
== END 2021-01-11 01:40 | disposition home or self-care (01) ==
LOC: MW.ED 23:16
DX: R19.7 Diarrhea, unspecified (principal); Z88.0 Allergy status to penicillin
CPT/HCPCS: 36415; 80053; 81001; 81025; 83630; 85025; 87045; 87046; 87324; 87449; 87899; 99284; J7030; 99283

== ENCOUNTER 2021-04-20 20:23 | Emergency (ER) | payer BC, OTHER ==
[2021-04-20] MEDS ORDERED: Ketorolac 15 MG/ML SDV IVPUSH ONE (20:57)
[2021-04-20] MEDS ORDERED: diphenhydrAMINE 50 MG/ML SDV IVPUSH ONE (20:57)
[2021-04-20] MEDS ORDERED: Prochlorperazine 10 MG/2 ML SDV IVPUSH ONE (20:58)
[2021-04-20] MEDS ORDERED: Dextrose 5%-0.9% NaCl 1,000 ML IV SCH (21:00)
[2021-04-20] MEDS ORDERED: Iopamidol 755 MG/ML 500 ML Multipack Bottle IVPUSH STA (21:30)
[2021-04-20 21:54] LABS: CORONAVIRUS COVID-19 NAA NEGATIVE (NEGATIVE); INFLUENZA A NAA NEGATIVE (NEGATIVE); INFLUENZA B NAA NEGATIVE (NEGATIVE)
[2021-04-20] MEDS ORDERED: Dexamethasone 10 MG/ML SDV IVPUSH ONE (22:14)
--- NOTE | 2021-04-20 22:34 | CT ---
INDICATION: Migraine for 3 days. TECHNIQUE: CT head without and with 100 cc Isovue 370 intravenous contrast. COMPARISON: None FINDINGS: CSF spaces: Within normal limits for age. Unremarkable dural venous sinuses. Brain parenchyma: The shirley-white differentiation is normal. No sign of mass, hemorrhage, or midline shift. No sign of abnormal enhancement. The intracranial vasculature appears grossly unremarkable. Skull base and calvarium: Mild mucosal thickening left maxillary sinus. The visualized orbits are grossly unremarkable. No skull fractures. IMPRESSION: Mild mucosal thickening left maxillary sinus, otherwise unremarkable head CT with and without contrast. No mass lesion or abnormal enhancement. Dural venous sinuses appear unremarkable. Please note that all CT scans at this facility use dose modulation, iterative reconstruction, and/or weight-based dosing when appropriate to reduce radiation dose to as low as reasonably achievable. Dictated by Mario Baca MD @ 04/20/2021 10:33:[address] Mario Baca @ Apr 20 2021 10:33PM
--- NOTE | 2021-04-20 22:36 | EDM.PDOC ---
ED HPI GENERAL MEDICAL PROBLEM - General Chief Complaint: Headache Stated Complaint: MIGRAINE SINCE FRIDAY Time Seen by Provider: 04/20/21 20:39 - History of Present Illness INITIAL COMMENTS - FREE TEXT/NARRATIVE: CHIEF COMPLAINT(S): Headache HISTORY OF PRESENT ILLNESS: This is a 20-year-old woman who prefers he/him pronouns who is currently undergoing testosterone therapy for transition who comes to the emergency department with a chief complaint of headache. The patient states that off and on for the last 2-1/2 months he has been experiencing a headache which she describes as bifrontal. he states that prior to the last week she has been able to tolerate it however over the last week the pain has increased. he describes the pain as throbbing associated with photophobia. he denies any phonophobia. he rates the pain a 7 out of 10. She denies any numbness, tingling, weakness. he denies any trouble walking, speaking or swallowing. he denies any history of brain aneurysm or family history of brain aneurysm. he states that the pain has progressively gotten worse and was not maximal at onset. he does not describes this headache as the worst headache of his life. he has tried [id number] medications without any relief. he has discussed this with his physician who is doing the testosterone therapy and typically headaches happen near the end of the 2-week treatment when the testosterone levels are low however it appears that this headache is not associated with that as he just had her 2-week low yesterday and had the injection also. REVIEW OF SYSTEMS: Constitutional: Denies fever, chills. Eyes: Denies eye pain Ears, Nose, Mouth, & Throat: Denies earache Cardiovascular: Denies chest pain Respiratory: Denies shortness of breath Gastrointestinal: Denies Nausea, vomiting, diarrhea, hematochezia. Genitourinary: Denies hematuria Skin:Denies a rash MSK: Denies joint pain Neurological: Positive for headache associated with photophobia. Denies blurred vision, loss of vision, trouble walking, speaking, swallowing. Denies numbness, tingling, weakness Psychiatric: Denies depression PAST MEDICAL HISTORY: As per history of present illness and as reviewed below otherwise noncontributory. SURGICAL HISTORY: As per history of present illness and as reviewed below otherwise noncontributory. LMP: 2 months ago SOCIAL HISTORY: As per history of present illness and as reviewed below ot herwise noncontributory. FAMILY HISTORY: As per history of present illness and as reviewed below otherwise noncontributory. EXAMINATION OF ORGAN SYSTEMS/BODY AREAS: Constitutional: Blood pressure is 115/79, heart rate 84, respiratory rate 18 with an oxygen saturation of 100% on room air. Temperature 35.6 General: Overall well-appearing woman who is in no acute distress Psychiatric: Appropriate mood and affect. Eyes: No scleral icterus or conjunctival erythema pupils are equal round reactive to light. Extraocular movements intact. No vertical horizontal nystagmus. ENMT: Moist mucous membranes. No pharyngeal erythema Cardiovascular: Regular, rate, and rhythm. No gallops, murmurs, or rubs. Bilateral upper extremity pulses symmetric and intact. No peripheral edema. No JVD. Respiratory: Lungs clear to auscultation bilaterally. No wheezes, rales, or rhonchi. Gastrointestinal: Soft, non-tender, non-distended. Normoactive bowel sounds Genitourinary: No suprapubic tenderness Musculoskeletal: Normal range of motion. Skin: No lesions or abrasions. Neurological: AOx4. CN grossly intact. Strength 5/5 in bilateral upper and lower extremity. Sensation is intact bilaterally in upper and lower extremity. Gait appears normal. Finger to nose, heel to ho, rapid alternating movements intact. MEDICAL DECISION MAKING AND COURSE IN THE ED WITH INTERPRETATION/REVIEW OF DIAGNOSTIC STUDIES: This is a 20-year-old woman who prefers he/him pronouns who is currently receiving testosterone therapy and transition who presents to the emergency department with 2 months of bifrontal headache associated with photophobia that is worsened over the last 3 days. Given the patient is receiving testosterone supplementation will obtain a CTV to evaluate for dural venous thrombosis as this treatment can increase chance of clotting. In addition we will obtain Covid, hCG and a carboxyhemoglobin as his partner is also having similar symptoms. We will treat the patient as a migraine headache although the patient does not have a history of migraine with Toradol, Compazine, Benadryl, Decadron and 1 L of D5 LR. Laboratory: Covid negative hCG negative carboxyhemoglobin negative. The radiological images were viewed by myself along with reading the report from the radiologist. CT head with and without contrast reveals mild mucosal thickening of the left maxillary sinus otherwise no acute abnormality. No abnormality in dural venous system. After imaging I did reevaluate the patient. He stated that he had significant improvement in his pain. Encourage the patient to continue with Tylenol Motrin at home. Encouraged him to follow-up with his primary care physician for further evaluation and monitoring. He was amenable discharge at this time and had no further questions. Strict return precautions were provided DISPOSITION: The patient was discharged home in stable condition. The patient will follow up with primary care physician in 3 to 5 days CONDITION: Fair PROCEDURES: None FINAL IMPRESSION(S)/DIAGNOSES: 1. Acute on chronic migraine headache Emeterio Rios M.D. 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: Musculoskeletal History: Reports: None Neurological History: Reports: None Psychiatric History: Reports: None Endocrine/Metabolic History: Reports: None Hematologic History: Reports: None - Infectious Disease History Infectious Disease History: Reports: None - Past Surgical History HEENT Surgical History: Reports: None Female Surgical History: Reports: Section Social & Family History - Family History Family Medical History: No Pertinent Family History - Tobacco Use Tobacco Use Status *Q: Never Tobacco User Second Hand Smoke Exposure: No - Caffeine Use Caffeine Use: Reports: None - Recreational Drug Use Recreational Drug Use: No ED ROS GENERAL - Review of Systems Review Of Systems: See Below ED EXAM, GENERAL - Physical Exam Exam: See Below Course - Vital Signs Last Recorded V/S: Last Vital Signs Temp 35.6 C L 04/20/21 20:35 Pulse 84 04/20/21 20:35 Resp 18 04/20/21 20:35 BP 115/79 04/20/21 20:35 Pulse Ox 100 04/20/21 20:35 - Orders/Labs/Meds Labs: Laboratory Tests 04/20/21 04/20/21 04/20/21 Range/Units 20:56 21:06 21:10 ABG Carboxyhemoglobin 1.7 (0-15) % Urine HCG, Qual NEGATIVE (NEGATIVE) Influenza Type A RNA NEGATIVE (NEGATIVE) Influenza Type B RNA NEGATIVE (NEGATIVE) SARS-CoV-2 RNA (LOBITO) NEGATIVE (NEGATIVE) Meds: Medications Discontinued Medications Generic Name Dose Route Start Last Admin Trade Name Curtq PRN Reason Stop Dose Admin Dexamethasone 10 mg 04/20/21 22:14 04/20/21 23:14 Dexamethasone 10 Mg/Ml Sdv IVPUSH 04/20/21 22:15 10 mg ONETIME ONE Administration Diphenhydramine HCl 25 mg 04/20/21 20:57 04/20/21 21:09 Diphenhydramine 50 Mg/Ml Sdv IVPUSH 04/20/21 20:58 25 mg ONETIME ONE Administration Dextrose/Sodium Chloride 1,000 mls @ 999 mls/hr 04/20/21 21:00 04/20/21 21:10 Dextrose 5%-Normal Saline IV 999 mls/hr ASDIRECTED HILTON Administration Iopamidol 100 ml 04/20/21 21:30 04/20/21 21:50 Iopamidol 755 Mg/Ml 500 Ml Multipack Bottle IVPUSH 04/20/21 21:31 100 ml ONETIME STA Administration Ketorolac Tromethamine 15 mg 04/20/21 20:57 04/20/21 21:09 Ketorolac 15 Mg/Ml Sdv IVPUSH 04/20/21 20:58 15 mg ONETIME ONE Administration Prochlorperazine Edisylate 5 mg 04/20/21 20:58 04/20/21 21:10 Prochlorperazine 10 Mg/2 Ml Sdv IVPUSH 04/20/21 20:59 5 mg ONETIME ONE Administration Departure - Departure Time of Disposition: 22:36 Disposition: Home, Self-Care 01 Condition: Fair Clinical Impression: Migraine - Discharge Information *PRESCRIPTION DRUG MONITORING PROGRAM REVIEWED*: No *COPY OF PRESCRIPTION DRUG MONITORING REPORT IN PATIENT CIARAN: No Instructions: Migraine Headache, [id number] Referrals: PCP,None [Primary Care Provider] - Forms: ED Department Discharge Additional Instructions: You were evaluated today on an emergent basis. At this time I do believe you are experiencing a migraine. Your imaging of your head was negative and all of your labs were normal. I recommend that she use Tylenol and Motrin for pain relief and to limit exposure to light and rest. If you have any worsening symptoms such as vomiting, trouble walking, trouble speaking, trouble swallowing or like you to return to the emergency department. Otherwise please follow-up with your primary care physician within 3 to 5 days. [facility] - [facility] [address] [place] [address] [facility] [address] [place] [id number] The patient is informed of any results of their evaluation and diagnostic workup and all questions are answered. They are given discharge instructions and return precautions. The patient is stable for discharge. The patient states they understand and agree with the plan and that they will return if their symptoms get worse or if they have any new concerns. The following information is given to patients seen in the emergency department who are being discharged to home. This information is to outline your options for follow-up care. We provide all patients seen in our emergency department with a follow-up referral. The need for follow-up, as well as the timing and circumstances, are variable depending upon the specifics of your emergency department visit. If you don't have a primary care physician on staff, we will provide you with a referral. We always advise you to contact your personal physician following an emergency department visit to inform them of the circumstance of the visit and for follow-up with them and/or the need for any referrals to a consulting specialist. The emergency department will also refer you to a specialist when appropriate. This referral assures that you have the opportunity for follow-up care with a specialist. All of these measure are taken in an effort to provide you with opt imal care, which includes your follow-up. Under all circumstances we always encourage you to contact your private physician who remains a resource for coordinating your care. When calling for follow-up care, please make the office aware that this follow-up is from your recent emergency room visit. If for any reason you are refused follow-up, please contact the [facility] Emergency Department at and asked to speak to the emergency department charge nurse. Sepsis Event Note (ED) - Evaluation Sepsis Screening Result: No Definite Risk
== END 2021-04-20 23:17 | disposition home or self-care (01) ==
LOC: MW.ED 20:23
DX: G43.909 Migraine, unspecified, not intractable, without status migrainosus (principal); Z88.0 Allergy status to penicillin; Z20.822 Contact with and (suspected) exposure to COVID-19
CPT/HCPCS: 0240U; 70470; 81025; 82375; 96374; 96375; 99284; J0780; J1100; J1200; J1885; J7042; Q9967

== ENCOUNTER 2021-06-17 22:57 | Emergency (ER) | payer BC, OTHER ==
--- NOTE | 2021-06-17 23:23 | EDM.PDOC ---
ED HPI GENERAL MEDICAL PROBLEM - General Chief Complaint: General Stated Complaint: POSSIBLE INFECTION IN JAW AND THROAT Time Seen by Provider: 06/17/21 23:11 Source of Information: Reports: Patient History Limitations: Reports: No Limitations - History of Present Illness INITIAL COMMENTS - FREE TEXT/NARRATIVE: Patient is a 20-year-old female presenting today for left lower jaw pain. She is waiting to get her wisdom teeth without and has been experience increased pain some swelling. Patient pain does not radiate not made better or worse with anything she has not taken any medication for the pain at home. She is able to swallow and breathe without issue denies any systemic symptoms such as fever chills nausea vomiting. Bilateral Jaw Pain Score (Numeric/FACES): 7 - Related Data Allergies Allergy/AdvReac Type Severity Reaction Status Date / Time Penicillins Allergy Hives Verified 04/20/21 20:37 Home Meds: Home Meds Testosterone 0.5 ml INJECT ASDIRECTED 04/20/21 [History] Past Medical History - Past Health History Medical/Surgical History: Denies Medical/Surgical History HEENT History: Reports: None Cardiovascular History: Reports: None Respiratory History: Reports: Asthma Other Respiratory History: Exercise induced asthma Gastrointestinal History: Reports: None VALUER History: Reports: Musculoskeletal History: Reports: None Neurological History: Reports: None Psychiatric History: Reports: None Endocrine/Metabolic History: Reports: None Hematologic History: Reports: None - Infectious Disease History Infectious Disease History: Reports: None - Past Surgical History HEENT Surgical History: Reports: None Female Surgical History: Reports: Section Social & Family History - Family History Family Medical History: No Pertinent Family History - Caffeine Use Caffeine Use: Reports: None ED ROS GENERAL - Review of Systems Review Of Systems: See Below Constitutional: Reports: No Symptoms HEENT: Reports: No Symptoms, Dental Pain Respiratory: Reports: No Symptoms Cardiovascular: Reports: No Symptoms Endocrine: Reports: No Symptoms GI/Abdominal: Reports: No Symptoms : Reports: No Symptoms Musculoskeletal: Reports: No Symptoms Skin: Reports: No Symptoms Neurological: Reports: No Symptoms Psychiatric: Reports: No Symptoms Hematologic/Lymphatic: Reports: No Symptoms Immunologic: Reports: No Symptoms ED EXAM, GENERAL - Physical Exam Exam: See Below Exam Limited By: No Limitations General Appearance: Alert, WD/WN, No Apparent Distress Nose: Normal Inspection Throat/Mouth: Normal Inspection, Normal Lips, Normal Oropharynx, Normal Voice, No Airway Compromise, Other (Pain with touch to the lower left jaw line). No: Dysphagia Respiratory/Chest: No Respiratory Distress Cardiovascular: Normal Peripheral Pulses GI/Abdominal: Normal Bowel Sounds Neurological: Alert, Oriented Course - Vital Signs Last Recorded V/S: Last Vital Signs Temp 97.8 F 06/17/21 23:12 Pulse 87 06/17/21 23:12 Resp 17 06/17/21 23:12 BP 111/65 06/17/21 23:12 Pulse Ox 97 06/17/21 23:12 Departure - Departure Time of Disposition: 23:22 Disposition: Home, Self-Care 01 Condition: Good Clinical Impression: Pain, dental - Discharge Information *PRESCRIPTION DRUG MONITORING PROGRAM REVIEWED*: Not Applicable *COPY OF PRESCRIPTION DRUG MONITORING REPORT IN PATIENT CIARAN: Not Applicable Instructions: Dental Pain Referrals: Jules Jhaveri [Primary Care Provider] - Additional Instructions: The following information is given to patients seen in the emergency department who are being discharged to home. This information is to outline your options for follow-up care. We provide all patients seen in our emergency department with a follow-up referral. The need for follow-up, as well as the timing and circumstances, are variable depending upon the specifics of your emergency department visit. If you don't have a primary care physician on staff, we will provide you with a referral. We always advise you to contact your personal physician following an emergency department visit to inform them of the circumstance of the visit and for follow-up with them and/or the need for any referrals to a consulting specialist. The emergency department will also refer you to a specialist when appropriate. This referral assures that you have the opportunity for follow-up care with a specialist. All of these measure are taken in an effort to provide you with optimal care, which includes your follow-up. Under all circumstances we always encourage you to contact your private physician who remains a resource for coordinating your care. When calling for follow-up care, please make the office aware that this follow-up is from your recent emergency room visit. If for any reason you are refused follow-up, please contact the [facility] Emergency Department at and asked to speak to the emergency department charge nurse. Please follow up with your primary care physician. If you do not have a primary care physician, see below: [facility] [address] [place] [address] [facility] [address] [place] [address] You are seen today for tooth pain. We will send you home antibiotics he can see your dentist to have your teeth extracted. Please follow-up with your dentist at your earliest convenience if you have any other concerning signs or symptoms please feel free to return to the ED. Sepsis Event Note (ED) - Focused Exam Vital Signs: Vital Signs Temp Pulse Resp BP Pulse Ox 06/17/21 23:12 97.8 F 87 17 111/65 97 - Assessment/Plan Plan: Patient is a 20-year-old female who presents today for left lower jaw pain. Patient has some pain to the lower gumline will send patient home with oral mouthwash antibiotics she can see the dentist.
== END 2021-06-17 23:32 | disposition home or self-care (01) ==
LOC: MW.ED 22:57
DX: K08.89 Other specified disorders of teeth and supporting structures (principal); Z88.0 Allergy status to penicillin
CPT/HCPCS: 99282